=== PATIENT | female | born 1965 | race Hispanic/Latino ===

== ENCOUNTER 2020-05-15 17:26 | Emergency (ER) | payer BC ==
[~2020-05-15] VITALS: Ht 154.9 cm; Wt 76.7 kg
[2020-05-15] MEDS ORDERED: SODIUM CHLORIDE 0.9% 1000ML 1,000 ML IV STA (17:48)
[2020-05-15] MEDS ORDERED: LORAZEPAM INJ 2 MG/ML VIAL IV ONE (18:00)
[2020-05-15] MEDS ORDERED: HALOPERIDOL LACTATE 5 MG/ML VIAL IM ONE (18:00)
[2020-05-15 18:05] LABS: BASOPHILS # (AUTO) 0.1 (0.0-0.1); BASOPHILS % 0.5 % (0.0-1.0); EOSINOPHILS # (AUTO) 0.1 (0.0-0.4); EOSINOPHILS % 0.4 % (0.0-6.0); HEMATOCRIT 40.6 % (34.2-44.1); HEMOGLOBIN 13.6 g/dL (12.0-16.0); LYMPHOCYTES % 22.8 % (18.0-39.1); MEAN CORPUSCULAR HEMOGLOBIN 29.8 pg (28-32); MEAN CORPUSCULAR HGB CONC 33.5 g/dL (31-35); MONOCYTES # (AUTO) 0.7 (0.2-0.8); MONOCYTES % 5.2 % (4.4-11.3); NEUTROPHILS # (AUTO) 9.3 (2.1-6.9); NEUTROPHILS % 70.6 % (38.7-80.0); PLATELET COUNT 512 x10e3/uL (140-360); RED BLOOD COUNT 4.56 x10e6/uL (3.6-5.1); RED CELL DISTRIBUTION WIDTH 12.5 % (11.7-14.4)
--- NOTE | 2020-05-15 18:23 | Emergency Department Note ---
History of Present Illnes History of Present Illness Chief Complaint: Psychiatric History of Present Illness This is a 54 year old female Chief Complaint Comment Patient presents to the emergency department in what appears to be a panic attack. Patient reports that it started this morning when she was using her mouse for work at home and she noticed that her mouse was moving around rapidly. She then noticed that it was her hand moving. She states that the symptoms became worse around 1630. On arrival to ER she is hyperventialting and screaming for help. She is tearful and states that she has never had anything like this happen before. Patient is tachycardic and tachypneic in triage and unable to calm herself down. Historian: Patient Arrival Mode: Car Sap Bw Developer Required: No Onset (how long ago): hour(s) (1) Location: head Quality: anxiety Radiation: Reports non-radiation Severity: severe Onset quality: sudden Duration (how long): hour(s) (1) Timing of current episode: sporadic Progression: worsening Chronicity: recurrent Context: Denies recent illness Relieving factors: none Exacerbating factors: none Associated symptoms: Reports denies other symptoms Treatments prior to arrival: none Past Medical/Family History Physician Review I have reviewed the patient's past medical and family history. Any updates have been documented here. Past Medical History Recent Fever: No Clinical Suspicion of Infectio: No New/Unexplained Change in Ment: No Past Medical History: Hypertension, Diabetes, Depression, Hyperlipedemia Other Surgery: GASTRIC BAND Social History Smoking Cessation: Never Smoker Counseling Performed: No Alcohol Use: None Any Illegal Drug Use: No Other Any Pre-Existing Lines (PICC,: No Review of Systems Review of Systems Constitutional: Reports no symptoms EENTM: Reports no symptoms Cardiovascular: Reports no symptoms Respiratory: Reports no symptoms Gastrointestinal: Reports no symptoms Genitourinary: Reports no symptoms Musculoskeletal: Reports no symptoms Integumentary: Reports no symptoms Neurological: Reports no symptoms Psychological: Reports as per HPI, Reports anxiety, Reports emotional problems Endocrine: Reports no symptoms Hematological/Lymphatic: Reports no symptoms Physical Exam Related Data Allergies: Coded Allergies: No Known Allergies (Unverified , 05/28/15) Triage Vital Signs Vital Signs Date Time Temp Pulse Resp B/P (MAP) Pulse Ox O2 Delivery O2 Flow Rate FiO2 05/15/20 17:28 99.5 152 18 Room Air 05/15/20 17:57 98 Vital signs reviewed: Yes Physical Exam CONSTITUTIONAL Constitutional: Present well-developed, Present well-nourished, Present distressed HENT HENT: Present normocephalic, Present atraumatic, Present oropharynx clear/moist, Present nose normal HENT L/R: Present left ext ear normal, Present right ext ear normal EYES Eyes: Reports PERRL, Reports conjunctivae normal NECK Neck: Present ROM normal PULMONARY Pulmonary: Present effort normal, Present breath sounds normal CARDIOVASCULAR Cardiovascular: Present regular rhythm, Present heart sounds normal, Present capillary refill normal, Present normal rate GASTROINTESTINAL Abdominal: Present soft, Present nontender, Present bowel sounds normal GENITOURINARY Genitourinary: Present exam deferred SKIN Skin: Present warm, Present dry MUSCULOSKELETAL Musculoskeletal: Present ROM normal NEUROLOGICAL Neurological: Present alert, Present oriented x 3, Present no gross motor or sensory deficits PSYCHOLOGICAL Psychological: Present mood/affect normal, Present judgement normal Results Laboratory Result Diagram: 05/15/20 1256 Laboratory Laboratory Tests Test 05/15/20 17:45 White Blood Count 13.21 x10e3/uL (4.8-10.8) Red Blood Count 4.56 x10e6/uL (3.6-5.1) Hemoglobin 13.6 g/dL (12.0-16.0) Hematocrit 40.6 % (34.2-44.1) Mean Corpuscular Volume 89.0 fL (81-99) Mean Corpuscular Hemoglobin 29.8 pg (28-32) Mean Corpuscular Hemoglobin Concent 33.5 g/dL (31-35) Red Cell Distribution Width 12.5 % (11.7-14.4) Platelet Count 512 x10e3/uL (140-360) Neutrophils (%) (Auto) 70.6 % (38.7-80.0) Lymphocytes (%) (Auto) 22.8 % (18.0-39.1) Monocytes (%) (Auto) 5.2 % (4.4-11.3) Eosinophils (%) (Auto) 0.4 % (0.0-6.0) Basophils (%) (Auto) 0.5 % (0.0-1.0) Neutrophils # (Auto) 9.3 (2.1-6.9) Lymphocytes # (Auto) 3.0 (1.0-3.2) Monocytes # (Auto) 0.7 (0.2-0.8) Eosinophils # (Auto) 0.1 (0.0-0.4) Basophils # (Auto) 0.1 (0.0-0.1) Absolute Immature Granulocyte (auto 0.07 x10e3/uL (0-0.1) Assessment & Plan Medical Decision Making MDM 54-year-old female presenting for feelings of dread and anxiety. She is overwhelmed with her father's recent . Examination is significant for tachypnea and tachycardia. This is largely resolved with Ativan. She denies any pain or any cardiac concerns. This is a recurrent issue since her father has . She denies suicidal ideation. CT head and labs are largely unremarkable. Doubt emergent process at this time. I discussed results patient as well as expected disease time course and management. They will follow up with their primary care provider or return to the emergency department for new or worsening symptoms. Patient's appropriate for discharge. Reassessment Reassessment time: 18:37 Reassessment Well appearing, NAD. Improved VS Assessment & Plan Final Impression: (1) Panic attack Depart Disposition: HOME, SELF-CARE Last Vital Signs Date Time Temp Pulse Resp B/P (MAP) Pulse Ox O2 Delivery O2 Flow Rate FiO2 05/15/20 17:57 135 36 134/68 98 Room Air 05/15/20 17:28 99.5 Medications in the ED Lorazepam 1 mg ONCE ONCE IV Last administered on 05/15/20at 17:57; Admin Dose 1 MG; Start 05/15/20 at 18:00; Stop 05/15/20 at 18:01; Status DC Sodium Chloride 1,000 ml @ 0 mls/hr Q0M STAT IV Last administered on 05/15/20at 17:56; Admin Dose 1,000 MLS/HR; Start 05/15/20 at 17:48; Stop 05/15/20 at 17:50; Status DC Haloperidol Lactate 5 mg ONCE ONCE IM ; Start 05/15/20 at 18:00; Stop 05/15/20 at 18:01; Status DC DENY COOK MD May 15, 2020 18:23
[2020-05-15 18:29] LABS: ALANINE AMINOTRANSFERASE 36 IU/L (0-55); ALBUMIN 4.3 g/dL (3.5-5.0); ALBUMIN/GLOBULIN RATIO 1.1 (0.8-2.0); ALKALINE PHOSPHATASE 98 IU/L (40-150); ANION GAP 22.1 mmol/L (8-16); BLOOD UREA NITROGEN 14 mg/dL (7-26); BUN/CREATININE RATIO 18 (6-25); CARBON DIOXIDE 18 mmol/L (22-29); CHLORIDE 103 mmol/L (98-107); CREATINE KINASE 36 IU/L (29-168); CREATININE, SERUM 0.79 mg/dL (0.57-1.11); EST GLOMERULAR FILTRATION RATE > 60 ML/MIN (60-); GLUCOSE 124 mg/dL (74-118); POTASSIUM 4.1 mmol/L (3.5-5.1); SODIUM 139 mmol/L (136-145)
--- OUTSIDE RECORDS SUMMARY | 2020-05-15 18:54 | XMS REPORT | Summary of Care ---
Author Author Thai Case, [facility] Organization Unknown Address Unknown Phone Unavailable Care Team Providers Care Sales Person Name Role Phone NATALIA Perry.P., LESLIE Unavailable Unavailable NEREYDA Garcia, PITO Unavailable Unavailable NERYEDA VILLAGOMEZ ND, PITO HERNANDEZ Unavailable Unavailable FRANCES COMBINATION MACHINE TENDER, MERLYN Verdugo Unavailable Unavailable REINA COMBINATION MACHINE TENDER, KURT Unavailable Unavailable NATALIA COMBINATION MACHINE TENDER-C, LESLIE Singh Unavailable Unavailable DRU VILLAGOMEZ, NEEL Unavailable Unavailable ALMA NGUYEN UT, ANGEL LUIS Escamilla Unavailable Unavailable Unavailable Unavailable Functional Status Name Dates Details Functional status health issues are not documented Status: Name Dates Details Cognitive status health issues are not d ocumented Status: Problems Name Dates Details 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, 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 Normal routine physical examination (V70 .0, Z00.00) Status: Active Common migraine without aura (346.10, G4 3.009) Status: Active Myalgia and myositis (729.1) Status: Active Conductive hearing loss (389.00, H90.2) Status: Active Hearing loss (389.9, H91.90) Status: Active Tinnitus (388.30, H93.19) Status: Active Dizziness (780.4, R42) Status: Active Papanicolaou smear for cervical cancer s creening (V76.2, Z12.4) Status: Active Menopausal symptoms (627.2, N95.1) Status: Active Encounter for vitamin deficiency screeni ng (V77.99, Z13.21) Status: Active Screening for hypothyroidism (V77.0, Z13 .29) Status: Active Acute urinary tract infection (599.0, N3 9.0) Status: Active Encounter for gynecological examination (V72.31, Z01.419) Status: Active Colon cancer screening (V76.51, Z12.11) Status: Active Constipation (564.00, K59.00) Status: Active Controlled depression (311, F32.9) Status: Active Major depression, chronic (296.20, F32.9 ) Status: Active Headache, chronic daily (784.0, R51) Status: Active Hearing loss, sudden, left (388.2, H91.2 2) Status: Active 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, 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 Dysgeusia (781.1, R43.2) Status: Active 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, 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, 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 pylori infection (041.86, A04.8) Status: Active Breast lump on right side at 11 o'clock position (611.72, N63.11) Status: Active Essential (primary) hypertension (401.9, I10) Status: Active Other hyperlipidemia (272.4, E78.49) Status: Active Need for Tdap vaccination (V06.1, Z23) Status: Active BMI 30.0-30.9,adult (V85.30, Z68.30) Status: Active Cervical cancer screening (V76.2, Z12.4) Status: Active Well woman exam with routine gynecologic al exam (V72.31, Z01.419) Status: Active Screening for human papillomavirus (HPV) (V73.81, Z11.51) Status: Active Breast cancer screening (V76.10, Z12.39) Status: Active New onset type 2 diabetes mellitus (250. 00, E11.9) Status: Active Cholelithiases (574.20, K80.20) Status: Active Hepatic steatosis (571.8, K76.0) Status: Active Glycosuria (791.5, R81) Status: Active Cough variant asthma (493.82, J45.991) Status: Active Acute bronchitis due to other specified organisms (466.0, J20.8) Status: Active Class 1 obesity due to excess calories w ithout serious comorbidity with body mass index (BMI) of 31.0 to 31.9 in adult (278.00, E66.09) Status: Active Mild persistent reactive airway disease without complication (493.90, J45.30) Status: Active Acute pharyngitis due to other specified organisms (462, J02.8) Status: Active Medications Name Dates Details Atorvastatin Calcium 20 MG Oral Tablet TAKE 1 TABLET DAILY Quantity: 90 LESLIE FISHER N.P. * Start : 01-Jul-2016 Active traZODone HCl - 50 MG Oral Tablet TAKE 1/2 OR 1 TABLET AT BEDTIME * Quantity: 90 Refills: 1 LESLIE FISHER N.P. * Start : 01-Jul-2016 Active buPROPion HCl ER (XL) 150 MG Oral Tablet Extended Release 24 Hour TAKE 2 TABLETS BY MOUTH DAILY * Quantity: 180 Refills: 1 LESLIE FISHER N.P. * Start : 01-Jul-2016 Active Pantoprazole Sodium 40 MG Oral Tablet Delayed Release TAKE 1 TABLET BY MOUTH DAILY PRN * Quantity: 90 Refills: 1 PITO DAWN M.D. * Start : 17-Oct-2017 Active Albuterol Sulfate HFA 108 (90 Base) MCG/ACT Inhalation Aerosol Solution 2 INHALATIONS FOUR TIMES A DAY UNTIL WELL * Quantity: 1 Refills: 0 NEREYDA Garcia, PITO * Start : 29-Oct-2019 Active 6.7 GM Inhaler predniSONE 10 MG Oral Tablet TAKE 1 TABLET DAILY AFTER BREAKFAST FOR 7 DAYS * Quantity: 7 Refills: 0 NEREYDA Garcia, PITO * Start : 29-Oct-2019 Active Doxycycline Hyclate 100 MG Oral Capsule TAKE 1 CAPSULE TWICE A DAY WITH FULL GLASS OF WATER FOR 10 DAYS * Quantity: 20 Refills: 0 NEREYDA Garcia, PITO * Start : 29-Oct-2019 Active Allergies and Adverse Reactions Name Dates Details No Known Allergies (Allergy) Status: Act lolis Past Medical History Name Dates Details History of deafness (V12.49, Z86.69) Status: Resolved History of Depressive disorder (311, F32 .9) Status: Resolved History of esophageal reflux (V12.79, Z8 7.19) Status: Resolved History of insomnia (V13.89, Z87.898) Status: Resolved History of Mammogram Status: Resolved History of Menopause (V49.81) Status: Resolved History of Vitamin B12 deficiency (266.2 , E53.8) Status: Resolved History of Vitamin D insufficiency (268. 9, E55.9) Status: Resolved No pertinent past medical history (V49.8 9, Z78.9) Status: Resolved Procedures Procedure Dates Details History of Gastric Surgery Completed History of Hysterectomy Completed Immunization Name Dates Details Td on: Aug-1996 Fluzone Quadrivalent 0.5 ML Intramuscula r Suspension Lot #: [id number] on: 03-Jun-2015 Fluzone Quadrivalent 0.5 ML Intramuscula r Suspension Lot #: [id number] on: 10-Jun-2016 Fluzone Quadrivalent 0.5 ML Intramuscula r Suspension Lot #: [id number] on: 17-Oct-2017 Hepatitis A, adult Lot #: [id number] on: 17-Oct-2017 Family History Name Dates Details Family history of Breast Cancer (V16.3) Comments: Family History Status: Active Family history of Heart Disease (V17.49) Comments: Family History Status: Active Name Dates Details Family history of Hypertension (V17.49) Status: Active Family history of Diabetes Mellitus (V18 .0) Status: Active Name Dates Details Family history of Hypertension (V17.49) Status: Active Family history of Cancer Status: Active Social History Name Dates Details - Status: Name Dates Details Former smoker Vital Signs Date Test Result Details [id number]-[id number]:52 BP Systolic 136 mm[Hg] Status: Comments: Lo cation: LUE; Position: Sitting BP Diastolic 66 mm[Hg] Status: Comments: Lo cation: LUE; Position: Sitting Height 61 in Status: Weight 166 lb Status: Body Mass Index Calculated 31.37 kg/m2 Status: Body Surface Area Calculated 1.75 m2 Status: Temperature 98.8 f Status: Comments: Me thod: Temporal Heart Rate 92 /min Status: Comments: Lo cation: L Radial; Respiration Rate 16 /min Status: Comments: Qu ality: Normal Results Date Description Value Details [id number]-[id number]:12 [O] Flu Test (in Office ) Flu A N (Normal) Flu B N (Normal) Plan of Care Name Dates Details Planned Observations Planned Goals not documented Planned Encounters Appointment; NEEL GONSALES M.D. On: 31-Oct-2019 15:15 Appointment; PITO DAWN M.D. On: 19-Nov-2019 10:30 Interventions Provided Medication Changes* Albuterol Sulfate HFA 108 (90 Base) MCG/ACT Inhalation Aerosol Solution - Start * Doxycycline Hyclate 100 MG Oral Capsule - Start * Pantoprazole Sodium 40 MG Oral Tablet Delayed Release - Renew * predniSONE 10 MG Oral Tablet - Start Labs/Procedures/Imaging* [O] Flu Test (in Office ); Done: 29 Oct 2019 * Nebulizer Treatment (In Office); Done: 29 Oct 2019 Medications/Immunizations Administered* Levalbuterol HCl - 1.25 MG/3ML Inhalation Nebulization Solution * MethylPREDNISolone Acetate 80 MG/ML Injection Suspension Instructions Name Dates Details Instructions not documented Encounters Appointment; PITO DAWN M.D. Encounter Diagnosis: Problem not documented On: 06-Dec-2017 8:00 Appointment; PITO DAWN M.D. Encounter Diagnosis: Problem not documented On: 06-Dec-2017 8:15 Appointment; ASHLEY TAYLOR M.D. Encounter Diagnosis: Problem not documented On: 20-Dec-2017 14:00 Appointment; MERLYN DANIELS NP Encounter Diagnosis: Problem not documented On: 29-Dec-2017 15:30 Appointment; NEEL GONSALES M.D. Encounter Diagnosis: Problem not documented On: 22-Feb-2018 10:45 Appointment; PJ BERNABE RD Encounter Diagnosis: Problem not documented On: 06-Mar-2018 9:00 Appointment; PITO DAWN M.D. Encounter Diagnosis: Problem not documented On: 06-Jul-2018 8:30 Appointment; PITO DAWN M.D. Encounter Diagnosis: Problem not documented On: 11-Aug-2018 11:00 Appointment; MERLYN DANIELS NP Encounter Diagnosis: Problem not documented On: 14-Dec-2018 13:45 Appointment; KURT HUANG NP Encounter Diagnosis: Problem not documented On: 17-Jan-2019 8:00 Appointment; LESLIE FISHER NP Encounter Diagnosis: Problem not documented On: 04-Apr-2019 13:30 Appointment; PITO DAWN M.D. Encounter Diagnosis: Problem not documented On: 05-Jul-2019 14:45 Appointment; NEEL GONSALES M.D. Encounter Diagnosis: Problem not documented On: 15-Aug-2019 9:45 Appointment; PITO DAWN M.D. Encounter Diagnosis: Problem not documented On: 23-Aug-2019 15:45 Appointment; NEEL GONSALES M.D. Encounter Diagnosis: Problem not documented On: 19-Sep-2019 15:30 Appointment; PITO DAWN M.D. Encounter Diagnosis: Problem not documented On: 29-Oct-2019 8:30
--- OUTSIDE RECORDS SUMMARY | 2020-05-15 18:54 | XMS REPORT | Summary of Care ---
Author Author [facility] Address [address] [place] [address] Phone Unavailable Care Team Providers Care Copy Chaser Name Role Phone NATALIA Ramirez, LESLIE Unavailable Unavailable NEREYDA Garcia, PITO Unavailable Stephan DAWN MD ID, PITO HERNANDEZ Unavailable Unavailable FRANCES GENERAL MAINTENANCE TECHNICIAN, MERLYN Verdugo Unavailable Unavailable REINA GENERAL MAINTENANCE TECHNICIAN, KURT Unavailable Unavailable NATALIA GENERAL MAINTENANCE TECHNICIAN-C, LESLIE Singh Unavailable Unavailable DRU VILLAGOMEZ, NEEL Unavailable Unavailable ALMA NGUYEN ID, ANGEL LUIS Escamilla Unavailable Unavailable Unavailable Unavailable [...] UNTIL WELL * Quantity: 1 Refills: 0 SANTHOSH DAWN M.D.NDA * Start : 29-Oct-2019 Active 6.7 GM Inhaler predniSONE 10 MG Oral Tablet TAKE 1 TABLET DAILY AFTER BREAKFAST FOR 7 DAYS * Quantity: 7 Refills: 0 NEREYDA Garcia, PITO * Start : 29-Oct-2019 Active Doxycycline Hyclate 100 MG Oral Capsule TAKE 1 CAPSULE TWICE A DAY WITH FULL GLASS OF WATER FOR 10 DAYS * Quantity: 20 Refills: 0 SANTHOSH DAWN M.D.NDA * Start : 29-Oct-2019 Active Allergies and [...] 0.5 ML Intramuscula r Suspension Lot #: [id number] on: 03-Jun-2015 Fluzone Quadrivalent 0.5 ML Intramuscula r Suspension Lot #: [id number] on: 10-Jun-2016 Fluzone Quadrivalent 0.5 ML Intramuscula r Suspension Lot #: [id number] on: 17-Oct-2017 Hepatitis A, adult Lot #: [...] smoker Vital Signs Date Test Result Details [id number]:52 BP Systolic 136 mm[Hg] Status: Comments: Lo [...] ality: Normal Results Date Description Value Details [id number]:12 [O] Flu Test (in Office ) Flu A N (Normal) Flu B N (Normal) Plan of Care Name Dates Details Planned Observations Planned Goals not documented Planned Encounters Appointment; PITO DAWN M.D. On: 19-Nov-2019 10:30 Instructions Name Dates Details Instructions not documented [...] Diagnosis: Problem not documented On: 29-Oct-2019 8:30 Appointment; NEEL GONSALES M.D. Encounter Diagnosis: Problem not documented On: 31-Oct-2019 15:15
--- OUTSIDE RECORDS SUMMARY | 2020-05-15 18:54 | XMS REPORT | Summary of Care ---
Author Author Srini Case, [facility] Organization Unknown Address Unknown Phone Unavailable Care Team Providers Care Photographic Editor Name Role Phone NATALIA N.P., LESLIE Unavailable Unavailable NEREYDA Garcia, PITO Unavailable Unavailable NEREYDA VILLAGOMEZ UT, PITO HERNANDEZ Unavailable Unavailable FRANCES REINFORCED CONCRETE INSPECTOR, MERLYN Verdugo Unavailable Unavailable REINA REINFORCED CONCRETE INSPECTOR, KURT Unavailable Unavailable NATALIA REINFORCED CONCRETE INSPECTOR-C, LESLIE Singh Unavailable Unavailable DRU VILLAGOMEZ, NEEL [...] other specified organisms (466.0, J20.8) Status: Active Acute pharyngitis due to other specified organisms (462, J02.8) Status: Active Mild intermittent reactive airway diseas e without complication (493.90, J45.20) Status: Active Class 1 obesity due to excess calories w ithout serious comorbidity with body mass index (BMI) of 31.0 to 31.9 in adult (278.00, E66.09) Status: Active Medications Name Dates Details Atorvastatin Calcium 20 MG Oral Tablet TAKE 1 TABLET DAILY Quantity: 90 LESLIE FISHER N.P. * Start : 01-Jul-2016 Active traZODone HCl - 50 MG Oral Tablet TAKE 1/2 OR 1 TABLET AT BEDTIME * Quantity: 90 Refills: 1 LESLIE IFSHER N.P. * Start : 01-Jul-2016 Active buPROPion [...] 0.5 ML Intramuscula r Suspension Lot #: [id number] on: 03-Jun-2015 Fluzone Quadrivalent 0.5 ML Intramuscula r Suspension Lot #: [id number] on: 10-Jun-2016 Fluzone Quadrivalent 0.5 ML Intramuscula r Suspension Lot #: [id number] on: 17-Oct-2017 Hepatitis A, adult Lot #: [...] smoker Vital Signs Date Test Result Details [id number]:52 BP Systolic 136 mm[Hg] Status: Comments: Lo [...] ality: Normal Results Date Description Value Details 60-[id number]:12 [O] Flu Test (in Office ) Flu [...] * MethylPREDNISolone Acetate 80 MG/ML Injection Suspension Plan* Rapid flu test: Negative * Acute bronchitis, Acute pharyngitis, Mild RAD without complication: * - In office: Nebulizer treatment with Levalbuterol HCl 1.25 mg and IM injection of Methylprednisolone 80 mg * - Medications: * - START Albuterol Sulfate 108 mcg/act, 2 inhalations, four times daily until well * - START Doxycycline 500 mg, BID x 10 days, may discontinue medication after 7 days if feeling well * - START Prednisone 10 mg, 1 tab daily after breakfast x 7 days * - Recommended increase intake of liquids * Return to clinic if symptoms worsen or fail to improve. Instructions Name Dates Details Instructions not documented [...] not documented On: 11-Aug-2018 11:00 Appointment; MERLYN DANIELS, GIOVANNI Encounter Diagnosis: Problem not documented On: 14-Dec-2018 13:45 Appointment; KURT HUANG, GIOVANNI Encounter Diagnosis: Problem not documented On: 17-Jan-2019 [...]
--- OUTSIDE RECORDS SUMMARY | 2020-05-15 18:54 | XMS REPORT | Continuity of Care Document ---
Author Author [facility] t Organization [facility] Address [address] [place] [address] Phone Unavailable Care Team Providers Care Receiver Setter Name Role Phone DIONY TAYLOR, INTERACTIVE MARKETING STRATEGIST Attphys Unavailable PITO DAWN M.D. Attphys Unavailable NEEL GONSALES M.D. Attphys Unavailable LESLIE FISHER APRN Attphys Unavailable KURT HUANG INTERACTIVE MARKETING STRATEGIST Attphys Unavailable MERLYN DANIELS APRN Attphys Unavailable PJ BERNABE RD Attphys Unavailable ASHLEY TAYLOR M.D. Attphys Unavailable BERENICE JONES NP Attphys Unavailable ANGEL LUIS MARQUEZ Attphys Unavailable JASPREET FITCH M.D. Attphys Unavailable AUDIOLOGY, LAB Attphys Unavailable GENERAL, AUDIOLOGY Attphys Unavailable Payers Payer Name Policy Type Policy Number Effective Date Expiration Date S ource Problems Condition Name Condition Details Condition Category Status Onset Date Resolution Date Last Treatment Date Treating Clinician Comments Source History of Mammogram History of Mammogram Problem Resolved [facility] History of Menopause History of Menopause Problem Resolved [facility] Myalgia and myositis Myalgia and myositis Problem Active [facility] History of deafness History of deafness Problem Resolved [facility] Major depression, chronic Major depression, chronic Problem Active [facility] History of esophageal reflux History of esophageal reflux Problem Re solved [facility] History of insomnia History of insomnia Problem Resolved [facility] History of Vitamin B12 deficiency History of Vitamin B12 deficie ncy Problem Resolved [facility] History of Vitamin D insufficiency History of Vitamin D insuffic iency Problem Resolved [facility] Hyperacusis Hyperacusis Problem Active [facility] Normal routine physical examination Normal routine physical exam ination Problem Active [facility] Common migraine without aura Common migraine without aura Problem Active [facility] Conductive hearing loss Conductive hearing loss Problem Active [facility] Hearing loss Hearing loss Problem Active [facility] Tinnitus Tinnitus [facility] Dizziness Dizziness Problem [facility] Cervical cancer screening Cervical cancer screening Problem Active [facility] Menopausal symptoms Menopausal symptoms Problem Active [facility] Encounter for vitamin deficiency screening Encounter f or vitamin deficiency screening Problem Active [facility] Screening for hypothyroidism Screening for hypothyroidism Problem Active [facility] Acute urinary tract infection Acute urinary tract infection Problem Active [facility] Well woman exam with routine gynecological exam Well w juan exam with routine gynecological exam Problem Active [facility] Colon cancer screening Colon cancer screening Problem Active [facility] Constipation Constipation Problem Active [facility] Headache, chronic daily Headache, chronic daily Problem Active [facility] Hearing loss, sudden, left Hearing loss, sudden, left Problem Active [facility] Otosclerosis Otosclerosis Problem Active [facility] Dysgeusia Dysgeusia Problem Active [facility] 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 Problem Active [facility] 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 Problem Active [facility] Prediabetes Prediabetes Problem Active [facility] Chronic insomnia Chronic insomnia Problem Active [facility] Abnormal CBC Abnormal CBC Problem Active [facility] Mood disorder Mood disorder Problem Active [facility] Insomnia Insomnia Problem Active [facility] Need for Tdap vaccination Need for Tdap vaccination Problem Active [facility] On statin therapy On statin therapy Problem Active [facility] GERD (gastroesophageal reflux disease) GERD (gastroesophagea l reflux disease) Problem Active [facility] Dysphagia Dysphagia Problem Active [facility] H. pylori infection H. pylori infection Problem Active [facility] Breast lump on right side at 11 o'clock position Breas t lump on right side at 11 o'clock position Problem [facility] Essential (primary) hypertension Essential (primary) hypertensio n Problem Active [facility] Screening for human papillomavirus (HPV) Screening for human papillomavirus (HPV) Problem Active [facility] Breast cancer screening Breast cancer screening Problem Active [facility] Cholelithiases Cholelithiases Problem Active [facility] Hepatic steatosis Hepatic steatosis Problem Active [facility] Glycosuria Glycosuria Problem [facility] Cough variant asthma Cough variant asthma Problem Active [facility] Acute bronchitis due to other specified organisms Acut e bronchitis due to other specified organisms Problem Active [facility] Mild persistent reactive airway disease without compli cation Mild persistent reactive airway disease without complication Problem Active [facility] Acute pharyngitis due to other specified organisms Acu te pharyngitis due to other specified organisms Problem Active [facility] New onset type 2 diabetes mellitus New onset type 2 diabetes mor litus Problem Active [facility] Subjective memory complaints Subjective memory complaints Problem Active [facility] Encounter for monitoring statin therapy Encounter for monito ring statin therapy Problem Active [facility] Standardized adult depression screening tool completed Standardized adult depression screening tool completed Problem Active [facility] Situational stress Situational stress Problem Active [facility] Ineffective coping Ineffective coping Problem Active [facility] Body mass index (BMI) of 29.0-29.9 in adult Body mass index (BMI) of 29.0-29.9 in adult Problem Active [facility] Abnormal mini-mental status exam Abnormal mini-mental status exa m Problem Active [facility] Overweight with body mass index (BMI) of 29 to 29.9 in adult Overweight with body mass index (BMI) of 29 to 29.9 in adult Problem Active [facility] Mixed hyperlipidemia Mixed hyperlipidemia Problem Active [facility] At low risk for fall At low risk for fall Problem Active [facility] Status post gastric banding surgery Status post gastric banding surgery Problem Active [facility] COVID-19 virus infection COVID-19 virus infection Problem Active [facility] Allergies, Adverse Reactions, Alerts Allergy Name Allergy Type Status Severity Reaction(s) Onset Date Inacti ve Date Treating Clinician Comments Source No Known Allergies DA Active U 2017-01-25 00:00:00 [facility] Family History Family Member Diagnosis Comments Start Date Stop Date Source Unknown Family Member Family history of Breast Cancer Family History [facility] Unknown Family Member Family history of Heart Disease Family History [facility] Mother Family history of Hypertension [facility] Mother Family history of Diabetes Mellitus [facility] Father Family history of Hypertension [facility] Father Family history of Cancer [facility] Social History Smoking Status Start Date Stop Date Source Ex-smoker (finding) [place] [facility] Medications Ordered Medication Name Filled Medication Name Start Date Stop Da te Current Medication? Ordering Clinician Indication Dosage Frequency Signature (SIG) Comments Components Source Promethazine-DM 6.25-15 MG/5ML Oral Syrup Promethazine -DM 6.25-15 MG/5ML Oral Syrup 2020-04-29 00:00:00 Yes LESLIE FISHER APRN TAKE 5 ML EVERY 4 TO 6 HOURS NEEDED FOR COUGH. [facility] Xopenex HFA 45 MCG/ACT Inhalation Aerosol Xopenex HFA 45 MCG/ACT Inhalation Aerosol 2020-04-29 00:00:00 Yes LESLIE FISHER APRN 2 Q6H INHALE 2 PUFFS Every 6 hours PRN Shortness of breath Un [facility] clonazePAM 0.25 MG Oral Tablet Disintegrating clonazeP AM 0.25 MG Oral Tablet Disintegrating 2020-01-10 00:00:00 Yes DIONY TAYLOR APRN PLACE 1 TABLET ON TONGUE AND ALLOW TO DISSOLVE NEEDED FOR PANIC ATTACKS AND TO HELP SLEEP. [facility] Januvia 100 MG Oral Tablet Januvia 100 MG Oral Tablet 2019-11-19 00:0 0:00 Yes PITO DAWN M.D. 1 QD TAKE 1 TABLET DAILY. [facility] Albuterol Sulfate HFA 108 (90 Base) MCG/ACT Inhalation Aerosol Solution Albuterol Sulfate HFA 108 (90 Base) MCG/ACT Inhalation Aerosol Solution 2019-10-29 00:00:00 Yes PITO DAWN M.D. 2 INHALATIONS FOUR TIMES A DAY UNTIL WELL [facility] Pantoprazole Sodium 40 MG Oral Tablet Delayed Release Pantoprazole Sodium 40 MG Oral Tablet Delayed Release 2017-10-17 00:00:00 Yes PITO Galindo TAKE 1 TABLET BY MOUTH DAILY PRN [facility] Atorvastatin Calcium 20 MG Oral Tablet Atorvastatin Calcium 20 MG Oral Tablet 2016-07-01 00:00:00 Yes LESLIE FISHER APRN 1 QD TAKE 1 TABLET DAILY [facility] traZODone HCl - 50 MG Oral Tablet traZODone HCl - 50 MG Oral Tablet 2016-07-01 00:00:00 Yes LESLIE FISHER INTERACTIVE MARKETING STRATEGIST TAKE 1/2 OR 1 T ABLET AT BEDTIME [facility] buPROPion HCl ER (XL) 150 MG Oral Tablet Extended Rele ase 24 Hour buPROPion HCl ER (XL) 150 MG Oral Tablet Extended Release 24 Hour 2016-07-01 00:00:00 Yes DIONY TAYLOR INTERACTIVE MARKETING STRATEGIST TAKE 2 TABLETS BY MOUTH DAILY [facility] Immunizations Ordered Immunization Name Filled Immunization Name Date Status Comments Source Tdap (Boostrix) 2019-11-19 11:30:00 Completed [facility] Fluzone Quadrivalent 0.5 ML Intramuscular Suspension 2017-10-17 09:46:00 Completed [facility] Hepatitis A, adult 2017-10-17 09:46:00 Completed [facility] Fluzone Quadrivalent 0.5 ML Intramuscular Suspension 2016-06-10 15:43:00 Completed [facility] Fluzone Quadrivalent 0.5 ML Intramuscular Suspension 2015-06-03 11:47:00 Completed [facility] Td Unknown Completed [facility] Vital Signs Vital Name Observation Time Observation Value Comments Source Systolic blood pressure 2020-01-10 08:35:00 135 mm[Hg] Loca tion: TAMY; Position: Sitting [facility] Diastolic blood pressure 2020-01-10 08:35:00 82 mm[Hg] Loc ation: EFFIEE; Position: Sitting [facility] Body height 2020-01-10 08:35:00 61 [in_us] [facility] Weight 2020-01-10 08:35:00 155.375 [lb_av] [facility] Body mass index (BMI) [Ratio] 2020-01-10 08:35:00 29.36 kg/m2 [facility] Body temperature 2020-01-10 08:35:00 97.7 [degF] Method: Temporal [facility] Heart Rate 2020-01-10 08:35:00 103 /min [facility] Respiratory rate 2020-01-10 08:35:00 16 /min [facility] BP Systolic 2019-11-19 11:24:00 128 mm[Hg] Location: TAMY; Positi on: Sitting [facility] BP Diastolic 2019-11-19 11:24:00 82 mm[Hg] Location: LUE; Positi on: Sitting [facility] BP Systolic 2019-11-19 10:32:00 120 mm[Hg] Location: LUE; Positi on: Sitting [facility] BP Diastolic 2019-11-19 10:32:00 76 mm[Hg] Location: LUE; Positi on: Sitting [facility] BP Systolic 2019-11-19 10:27:00 143 mm[Hg] Location: LUE; Positi on: Sitting [facility] BP Diastolic 2019-11-19 10:27:00 77 mm[Hg] Location: LUE; Positi on: Sitting [facility] Height 2019-11-19 10:27:00 61 [in_us] [facility] Weight 2019-11-19 10:27:00 158.1 [lb_av] [facility] Body Mass Index Calculated 2019-11-19 10:27:00 29.87 kg/m2 [facility] Temperature 2019-11-19 10:27:00 97.8 [degF] Method: Temporal [facility] Heart Rate 2019-11-19 10:27:00 91 /min Location: L Radial; [facility] Respiration Rate 2019-11-19 10:27:00 16 /min Quality: Normal [facility] BP Systolic 2019-10-29 08:52:00 136 mm[Hg] Location: LUE; Positi on: Sitting [facility] BP Diastolic 2019-10-29 08:52:00 66 mm[Hg] Location: LUE; Positi on: Sitting [facility] Height 2019-10-29 08:52:00 61 [in_us] [facility] Weight 2019-10-29 08:52:00 166 [lb_av] [facility] Body Mass Index Calculated 2019-10-29 08:52:00 31.37 kg/m2 [facility] Temperature 2019-10-29 08:52:00 98.8 [degF] Method: Temporal [facility] Heart Rate 2019-10-29 08:52:00 92 /min Location: L Radial; [facility] Respiration Rate 2019-10-29 08:52:00 16 /min Quality: Normal [facility] BP Systolic 2019-09-19 15:48:00 141 mm[Hg] Location: LUE; Positi on: Sitting [facility] BP Diastolic 2019-09-19 15:48:00 81 mm[Hg] Location: LUE; Positi on: Sitting [facility] Height 2019-09-19 15:48:00 61 [in_us] [facility] Weight 2019-09-19 15:48:00 165.5 [lb_av] [facility] Body Mass Index Calculated 2019-09-19 15:48:00 31.27 kg/m2 [facility] Temperature 2019-09-19 15:48:00 97.6 [degF] Method: Oral [facility] Heart Rate 2019-09-19 15:48:00 95 /min [facility] BP Systolic 2019-08-15 10:32:00 127 mm[Hg] Location: LUE; Positi on: Sitting [facility] BP Diastolic 2019-08-15 10:32:00 87 mm[Hg] Location: EFFIEE; Positi on: Sitting [facility] Height 2019-08-15 10:32:00 61 [in_us] [facility] Weight 2019-08-15 10:32:00 164 [lb_av] [facility] Body Mass Index Calculated 2019-08-15 10:32:00 30.99 kg/m2 [facility] Temperature 2019-08-15 10:32:00 98.4 [degF] Method: Oral [facility] Heart Rate 2019-08-15 10:32:00 87 /min [facility] BP Systolic 2019-04-04 13:49:00 125 mm[Hg] Location: LLE; Positi on: Sitting [facility] BP Diastolic 2019-04-04 13:49:00 77 mm[Hg] Location: LLE; Positi on: Sitting [facility] Height 2019-04-04 13:49:00 61 [in_us] [facility] Weight 2019-04-04 13:49:00 162 [lb_av] [facility] Body Mass Index Calculated 2019-04-04 13:49:00 30.61 kg/m2 [facility] Temperature 2019-04-04 13:49:00 98.1 [degF] Method: Temporal [facility] Respiration Rate 2019-04-04 13:49:00 16 /min [facility] Heart Rate 2019-04-04 13:49:00 91 /min [facility] BP Systolic 2019-01-17 08:15:00 131 mm[Hg] Location: LUE; Positi on: Sitting [facility] BP Diastolic 2019-01-17 08:15:00 75 mm[Hg] Location: LUE; Positi on: Sitting [facility] Height 2019-01-17 08:15:00 61 [in_us] [facility] Weight 2019-01-17 08:15:00 163.25 [lb_av] [facility] Body Mass Index Calculated 2019-01-17 08:15:00 30.85 kg/m2 [facility] Temperature 2019-01-17 08:15:00 97.8 [degF] Method: Temporal [facility] Heart Rate 2019-01-17 08:15:00 72 /min [facility] Respiration Rate 2019-01-17 08:15:00 16 /min [facility] BP Systolic 2017-12-20 13:57:00 126 mm[Hg] Location: LUE; Positi on: Sitting [facility] BP Diastolic 2017-12-20 13:57:00 76 mm[Hg] Location: LUE; Positi on: Sitting [facility] Height 2017-12-20 13:57:00 61 [in_us] [facility] Weight 2017-12-20 13:57:00 142 [lb_av] [facility] Body Mass Index Calculated 2017-12-20 13:57:00 26.83 kg/m2 [facility] Temperature 2017-12-20 13:57:00 98.5 [degF] Method: Oral [facility] Heart Rate 2017-12-20 13:57:00 80 /min Location: L Radial; Q uality: Normal [facility] BP Systolic 2017-12-06 08:19:00 124 mm[Hg] Location: LUE; Positi on: Sitting [facility] BP Diastolic 2017-12-06 08:19:00 85 mm[Hg] Location: LUE; Positi on: Sitting [facility] Height 2017-12-06 08:19:00 61 [in_us] [facility] Weight 2017-12-06 08:19:00 142.375 [lb_av] [facility] Body Mass Index Calculated 2017-12-06 08:19:00 26.9 kg/m2 [facility] Temperature 2017-12-06 08:19:00 97.4 [degF] Method: Temporal [facility] Heart Rate 2017-12-06 08:19:00 78 /min [facility] Respiration Rate 2017-12-06 08:19:00 16 /min [facility] Procedures Procedure Date / Time Performed Performing Clinician Sourc e [QLH] METHYLMALONIC ACID 2019-11-19 00:00:00 [facility] [QLH] VITAMIN B12 2019-11-19 00:00:00 [facility] [QLH] TSH, 3RD GENERATION W/REFLEX TO FT4 2019-11-19 00:00:00 [facility] [QH] LIPID PANEL WITH REFLEX TO DIRECT LDL 2019-11-19 00:00:00 [facility] [QLH] HEMOGLOBIN A1c 2019-11-19 00:00:00 [facility] [QLH] CMP W/EGFR 2019-11-19 00:00:00 [facility] [QL] METHYLMALONIC ACID 2019-11-19 00:00:00 [facility] [QL] VITAMIN B12 2019-11-19 00:00:00 [facility] [QL] TSH, 3RD GENERATION W/REFLEX TO FT4 2019-11-19 00:00:00 [facility] [Q] LIPID PANEL WITH REFLEX TO DIRECT LDL 2019-11-19 00:00:00 [facility] [QL] HEMOGLOBIN A1c 2019-11-19 00:00:00 [facility] [QL] CMP W/EGFR 2019-11-19 00:00:00 [facility] [QLH] GLUCOSE TOLERANCE TEST, 3 SPECIMENS, (75G) 2019-06-27 00:0 0:00 [facility] [QLH] HEMOGLOBIN A1c 2019-06-27 00:00:00 [facility] [Q] HEPATITIS PANEL, ACUTE W/REFLEX 2019-06-27 00:00:00 [facility] Liver [id number] 2019-06-27 00:00:00 [facility] [[facility]] LIPID PANEL 2019-04-04 00:00:00 [facility] [[facility]] TSH, 3RD GENERATION W/REFLEX TO FT4 2019-04-04 00:00:00 [facility] [[facility]] CMP W/EGFR 2019-04-04 00:00:00 [facility] [[facility]] CBC (INCLUDES DIFF/PLT) 2019-04-04 00:00:00 [facility] [[facility]] URINALYSIS, COMPLETE 2019-04-04 00:00:00 [facility] MA Digital Mammo DX Jay [id number] 2019-01-17 00:00:00 [facility] [place] [id number] 2019-01-17 00:00:00 [facility] of Hysterectomy [facility] Encounters Start Date/Time End Date/Time En[facility] Encounter ID Source 2020-01-10 08:30:00 2020-01-10 08:30:00 Appointment; DIONY TAYLOR APRN DUGAS, NANCY, APRN [facility] [place] 1 [id number] [facility] 2019-11-19 10:30:00 2019-11-19 10:30:00 Appointment; CY DAWN M.D. GOODINE, GLENDA, M.D. [facility] [id number] [facility] 2019-10-31 15:15:00 2019-10-31 15:15:00 Appointment; NEEL GONSALES M.D. WILSON, ERIK, M.D. [facility] [id number] [facility] 2019-10-29 08:30:00 2019-10-29 08:30:00 Appointment; CY DAWN M.D. GOODINE, GLENDA, M.D. [facility] [id number] [facility] 2019-09-19 15:30:00 2019-09-19 15:30:00 Appointment; NEEL GONSALES M.D. WILSON, ERIK, M.D. [facility] [id number] [facility] 2019-08-23 15:45:00 2019-08-23 15:45:00 Appointment; CY DAWN M.D. GOODINE, GLENDA, M.D. [facility] [id number] [facility] 2019-08-15 09:45:00 2019-08-15 09:45:00 Appointment; NEEL GONSALES M.D. WILSON, ERIK, M.D. [facility] [id number] [facility] 2019-08-13 14:15:00 2019-08-13 14:15:00 Appointment; CY DAWN M.D. GOODINE, GLENDA, M.D. [facility] [id number] [facility] 2019-07-05 14:45:00 2019-07-05 14:45:00 Appointment; CY DAWN M.D. GOODINE, GLENDA, M.D. [facility] [id number] [facility] 2019-04-04 13:30:00 2019-04-04 13:30:00 Appointment; AARON FISHER APRN HOANG, CHRISTINA, APRN [facility], [address] [id number] [facility] 2019-01-17 08:00:00 2019-01-17 08:00:00 Appointment; KURT HUANG A PRN SAXE, KAILA, APRN [facility] [id number] [facility] 2018-12-14 13:45:00 2018-12-14 13:45:00 Appointment; MERLYN DANIELS APRN KLEIN, CONNIE, APRN [facility] [id number] [facility] 2018-08-11 11:00:00 2018-08-11 11:00:00 Appointment; CY DAWN M.D. GOODINE, GLENDA, M.D. [facility] [id number] [facility] 2018-07-06 08:30:00 2018-07-06 08:30:00 Appointment; CY DAWN M.D. GOODINE, GLENDA, M.D. [facility] [id number] [facility] 2018-07-06 08:30:00 2018-07-06 08:30:00 Appointment; CY DAWN M.D. GOODINE, GLENDA, M.D. [facility] UTP [id number] [facility] 2018-03-06 09:00:00 2018-03-06 09:00:00 Appointment; PJ BERNABE, PJ DE LA TORRE, GISSELLE [facility] UTP [id number] [facility] 2018-02-22 10:45:00 2018-02-22 10:45:00 Appointment; NEEL GONSALES M.D. WILSON, ERIK, M.D. [facility] [facility] [id number] [facility] 2017-12-29 15:30:00 2017-12-29 15:30:00 Appointment; MERLYN DANIELS APRN KLEIN, CONNIE, APRN [facility] [id number] [facility] 2017-12-20 14:00:00 2017-12-20 14:00:00 Appointment; ASHLEY TAYLOR M.D. CATALANO, MARC, M.D. [facility] [id number] [facility] 2017-12-06 08:15:00 2017-12-06 08:15:00 Appointment; CY DAWN M.D. GOODINE, GLENDA, M.D. [facility] [id number] [facility] 2017-12-06 08:00:00 2017-12-06 08:00:00 Appointment; CY DAWN M.D. GOODINE, GLENDA, M.D. [facility] [id number] [facility] 2017-10-17 08:30:00 2017-10-17 08:30:00 Appointment; CY DAWN M.D. GOODINE, GLENDA, M.D. [facility] [id number] [facility] 2017-04-18 15:00:00 2017-04-18 15:00:00 Appointment; BERENICE JONES N P BECK, SHERI, NP [facility] [id number] [facility] 2017-03-29 11:30:00 2017-03-29 11:30:00 Appointment; ANGEL LUIS MARQUEZ TAYLOR [facility] [id number] [facility] 2017-03-25 15:00:00 2017-03-25 15:00:00 Appointment; ANGEL LUIS MARQUEZ TAYLOR [facility] [id number] [facility] 2017-03-02 15:00:00 2017-03-02 15:00:00 Appointment; ANGEL LUIS MARQUEZ TAYLOR [facility] [id number] [facility] 2017-02-21 11:30:00 2017-02-21 11:30:00 Appointment; ANGEL LUIS MARQUEZ TAYLOR [facility] [id number] [facility] 2017-01-26 14:30:00 2017-01-26 14:30:00 Appointment; ANGEL LUIS MARQUEZ TAYLOR [facility] [id number] [facility] 2017-01-26 14:15:00 2017-01-26 14:15:00 Appointment; JASPREET FITCH M.D. ALAVA, IBRAHIM, M.D. [facility] [id number] [facility] 2016-12-22 08:30:00 2016-12-22 08:30:00 Appointment; JASPREET FITCH M.D. ALAVA, IBRAHIM, M.D. [facility] [id number] [facility] 2016-09-16 10:00:00 2016-09-16 10:00:00 Appointment; AUDIOLOGY, LAB AUDIOLOGY, LAB [facility] [id number] [facility] 2016-09-02 13:00:00 2016-09-02 13:00:00 Appointment; GENERAL, AUDIO LOGY GENERAL, AUDIOLOGY [facility] [id number] [facility] 2016-09-02 13:00:00 2016-09-02 13:00:00 Appointment; JASPREET FITCH M.D. ALAVA, IBRAHIM, M.D. [facility] [id number] [facility] 2016-07-01 15:30:00 2016-07-01 15:30:00 Appointment; CY DAWN M.D. GOODINE, GLENDA, M.D. [facility] [id number] [facility] 2016-06-24 16:00:00 2016-06-24 16:00:00 Appointment; ASHLEY TAYLOR M.D. CATALANO, MARC, M.D. [facility] [id number] [facility] 2016-06-10 10:30:00 2016-06-10 10:30:00 Appointment; CY DAWN M.D. GOODINE, GLENDA, M.D. [facility] [id number] [facility] Results Test Description Test Time Test Comments Results Result Comments Source - CTA HEAD 2020-04-22 06:35:00 Name: TAMIKA RANDHAWA [facility] : 1965 Age/S: 54 / F [address] [facility] Unit #: [id number] Loc: [place], [place] [address] Phys: Kike oFwler MD Acct: [id number] Dis Date: Status: REG ER PHONE #: [phone] Exam Date: 04/22/2020605 FAX #: [phone] Reason: cva EXAMS: CPT CODE: [id number] CTA HEAD 61994 EXAM: - CTA NECK, - CTA HEAD LOCATION: C3 HISTORY: cva TECHNIQUE: CTA head: Axial CT images were obtained from the skull base to the vertex after intravenous contrast utilizing CTA protocol. Coronal and sagittal maximum intensity projection images are provided. CTA neck: Axial CT images were obtained from the aortic arch to the skull base after intravenous contrast utilizing CTA protocol. Coronal and sagittal maximum intensity projection images are provided. This exam was performed according to our departmental dose-optimization program, which includes automated exposure control, adjustment of the mA and/or kV according to patient size and/or use of iterative reconstruction technique COMPARISON: None available time of interpretation. FINDINGS: For the purposes of this dictation, hemodynamically significant stenosis is characterized as greater than 50%. CTA head: The petrous, cavernous, and right clinoid internal carotid arteries do not demonstrate hemodynamically significant stenoses. Focal high-grade stenosis in the left clinoid internal carotid artery. The anterior and middle cerebral arteries do not demonstrate hemodynamically significant stenoses. [place] of both vertebral arteries into the basilar. Basilar artery and posterior cerebral arteries are do not demonstrate hemodynamically significant stenoses. The dural venous sinuses are patent. CTA neck: The origins of the great vessels from the aortic arch do not demonstrate hemodynamically significant stenoses. PAGE 1 Signed Report (CONTINUED) Name: TAMIKA ALEXANDER [facility] : 1965 Age/S: 54 / F [address] [place] [address] Unit #: [id number] Loc: [place] [address] Phys: Kike Fowler MD Acct: [id number] Dis Date: Status: REG ER PHONE #: [phone] Exam Date: 04/22/2020605 FAX #: [phone] Reason: cva EXAMS: CPT CODE: [id number] CTA HEAD 65049 <Continued> The bilateral common carotid arteries and bulbs are without hemodynamically significant stenosis. The internal carotid arteries do not demonstrate hemodynamically significant stenosis. Left vertebral artery is dominant. Right vertebral artery terminates in the PICA. 1.3 cm left thyroid lobe nodule. IMPRESSION: No intracranial large vessel occlusion. Focal high-grade stenosis in the left clinoid internal carotid artery, greater than 70%. 1.3 cm left thyroid lobe nodule. Recommend nonemergent thyroid ultrasound for further evaluation. at 0635 Reported and signed by: ULISSES HERRERA M.D. CC: Kike Fowler MD Technologist:Gio Hong, RT(R) CT CTDI: 20.72 DLP: 10.36 Trnscb Date/Time: 04/22/2020 (06) [email or web address] Orig Print D/T: S: 04/22/2020 (0638) PAGE 2 Signed Report - CTA NECK 2020-04-22 06:35:00 Name: TAMIKA RANDHAWA [facility] : 1965 Age/S: 54 / F [address] [place] [address] Road Unit #: [id number] Loc: [place] [address] Phys: Kike Fowler MD Acct: [id number] Dis Date: Status: REG ER PHONE #: [phone] Exam Date: 04/22/2020605 FAX #: [phone] Reason: cva EXAMS: CPT CODE: [id number] CTA NECK 30484 EXAM: - CTA NECK, - CTA HEAD LOCATION: C3 HISTORY: cva TECHNIQUE: CTA head: Axial CT images were obtained from the skull base to the vertex after intravenous contrast utilizing CTA protocol. Coronal and sagittal maximum intensity projection images are provided. CTA neck: Axial CT images were obtained from the aortic arch to the skull base after intravenous contrast utilizing CTA protocol. Coronal and sagittal maximum intensity projection images are provided. This exam was performed according to our departmental dose-optimization program, which includes automated exposure control, adjustment of the mA and/or kV according to patient size and/or use of iterative reconstruction technique COMPARISON: None available time of interpretation. FINDINGS: For the purposes of this dictation, hemodynamically significant stenosis is characterized as greater than 50%. CTA head: The petrous, cavernous, and right clinoid internal carotid arteries do not demonstrate hemodynamically significant stenoses. Focal high-grade stenosis in the left clinoid internal carotid artery. The anterior and middle cerebral arteries do not demonstrate hemodynamically significant stenoses. [place] of both vertebral arteries into the basilar. Basilar artery and posterior cerebral arteries are do not demonstrate hemodynamically significant stenoses. The dural venous sinuses are patent. CTA neck: The origins of the great vessels from the aortic arch do not demonstrate hemodynamically significant stenoses. PAGE 1 Signed Report (CONTINUED) Name: TAMIKA ALEXANDER [facility] : 1965 Age/S: 54 / F [address] [facility] Unit #: [id number] Loc: [place] [address] Phys: Kike Fowler MD Acct: [id number] Dis Date: Status: REG ER PHONE #: [phone] Exam Date: 04/22/2020 0606 FAX #: [phone] Reason: cva EXAMS: CPT CODE: [id number] CTA NECK 37052 <Continued> The bilateral common carotid arteries and bulbs are without hemodynamically significant stenosis. The internal carotid arteries do not demonstrate hemodynamically significant stenosis. Left vertebral artery is dominant. Right vertebral artery terminates in the PICA. 1.3 cm left thyroid lobe nodule. IMPRESSION: No intracranial large vessel occlusion. Focal high-grade stenosis in the left clinoid internal carotid artery, greater than 70%. 1.3 cm left thyroid lobe nodule. Recommend nonemergent thyroid ultrasound for further evaluation. at 0635 Reported and signed by: ULISSES HERRERA M.D. CC: Kike Fowler MD Technologist:Gio Hong, RT(R) CT CTDI: 8.41 DLP: 362.23 Trnscb Date/Time: 04/22/2020 (0635) [email or web address] Orig Print D/T: S: 04/22/2020 (0638) PAGE 2 Signed Report - CT HEAD/BRAIN W/O CONT 2020-04-22 05:46:00 N blessing: TAMIKA ALEXANDER [facility] : 1965 Age/S: 54 / F [address] [facility] Unit #: [id number] Loc: [place] [address] Phys: Kike Fowler MD Acct: [id number] Dis Date: Status: REG ER PHONE #: [phone] Exam Date: 04/22/2020 0537 FAX #: [phone] Reason: cva EXAMS: CPT CODE: [id number] CT HEAD/BRAIN W/O CONT 13915 EXAM: - CT HEAD/BRAIN W/O CONT LOCATION: C3 HISTORY: 54 years-year old Female with cva TECHNIQUE: Computerized tomography images from the skull base to the vertex were obtained. Coronal and sagittal reformatted images are provided. This exam was performed according to our departmental dose-optimization program, which includes automated exposure control, adjustment of the mA and/or kV according to patient size and/or use of it erative reconstruction technique COMPARISON: None FINDINGS: Brain: The brain parenchymal architecture is unremarkable. The brain parenchyma is age appropriate. There is no evidence of an acute territorial infarct. Hemorrhage: There is no CT evidence of acute intracranial hemorrhage. Mass/edema: There is no CT evidence of mass effect, midline shift, or parenchymal edema. Ventricles: There is no evidence of hydrocephalus. Bones: There is no evidence of acute displaced calvarial fracture. Sinuses: The visualized portions of the paranasal sinuses and mastoid air cells are free of significant opacification. Other/Soft Tissues: Unremarkable. IMPRESSION: 1. No CT evidence of acute intracranial abnormality. PAGE 1 Signed Report (CONTINUED) Name: TAMIKA ALEXANDER [facility] : 1965 Age/S: 54 / F [address] Unit #: [id number] Loc: [place] [address] Phys: Kike Fowler MD Acct: [id number] Dis Date: Status: REG ER PHONE #: [phone] Exam Date: 04/22/2020 0537 FAX #: [phone] Reason: cva EXAMS: CPT CODE: [id number] CT HEAD/BRAIN W/O CONT 64306 <Continued> at 0546 Reported and signed by: ULISSES HERRERA M.D. CC: Kike Fowler MD Technologist:Gio Hong, RT(R) CT CTDI: 37.07 DLP: 593.08 Trnscb Date/Time: 04/22/2020 (0546) [email or web address] Orig Print D/T: S: 04/22/2020 (0549) PAGE 2 Signed Report COMPREHENSIVE METABOLIC PANEL 2020-04-22 05:19:00 Test Item SODIUM (test code = NA) 140 mmol/L 136-145 N POTASSIUM (test code = K) 3.2 mmol/L 3.5-5.1 L CHLORIDE (test code = CL) 107 mmol/L 98-107 N CARBON DIOXIDE (test code = CO2) 29 mmol/L 21-32 N GLUCOSE (test code = GLU) 108 mg/dL 70-100 H BLOOD UREA NITROGEN (test code = BUN) 8 mg/dL 7-18 N GLOMERULAR FILTRATION RATE (test code = GFR) > 60.00 >=60 Reporting units: mL/min/1.73m\S\2 (Modified MDRD formula)REFERENCE RANGE: > or = 60 ml/min/1.73M2IF PATIENT IS -SYRIAN, MULTIPLY REPORTED RESULT BY1.21. CREATININE (test code = CREAT) 0.80 mg/dL 0.51-0.95 N TOTAL PROTEIN (test code = PROT) 7.2 g/dl 6.4-8.2 N ALBUMIN (test code = ALB) 3.5 g/dl 3.4-5.0 N CALCIUM (test code = CA) 8.1 mg/dL 8.5-10.1 L BILIRUBIN TOTAL (test code = BILT) 0.6 mg/dl 0.2-1.0 N SGOT/AST (test code = AST) 50 U/L 15-37 H SGPT/ALT (test code = ALT) 55 U/L 12-78 N ALKALINE PHOSPHATASE TOTAL (test code = ALKP) 100 U/L 50-136 N COMPREHENSIVE METABOLIC [id number] 05:18:00* Test Item Value Reference Range Interpretation Comments SODIUM (test code = NA) 140 mmol/L 136-145 N POTASSIUM (test code = K) 3.2 mmol/L 3.5-5.1 L CHLORIDE (test code = CL) 107 mmol/L 98-107 N CARBON DIOXIDE (test code = CO2) 29 mmol/L 21-32 N GLUCOSE (test code = GLU) 108 mg/dL 70-100 H BLOOD UREA NITROGEN (test code = BUN) 8 mg/dL 7-18 N GLOMERULAR FILTRATION RATE (test code = GFR) > 60.00 >=60 Reporting units: mL/min/1.73m\S\2 (Modified MDRD formula)REFERENCE RANGE: > or = 60 ml/min/1.73M2IF PATIENT IS -SYRIAN, MULTIPLY REPORTED RESULT BY1.21. CREATININE (test code = CREAT) 0.80 mg/dL 0.51-0.95 N TOTAL PROTEIN (test code = PROT) 7.2 g/dl 6.4-8.2 N ALBUMIN (test code = ALB) 3.5 g/dl 3.4-5.0 N CALCIUM (test code = CA) 8.1 mg/dL 8.5-10.1 L BILIRUBIN TOTAL (test code = BILT) 0.6 mg/dl 0.2-1.0 N SGOT/AST (test code = AST) 50 U/L 15-37 H SGPT/ALT (test code = ALT) 55 U/L 12-78 N ALKALINE PHOSPHATASE TOTAL (test code = ALKP) U/L 50-136 COMPREHENSIVE METABOLIC [id number] 05:16:00* Test Item Value Reference Range Interpretation Comments SODIUM (test code = NA) 140 mmol/L 136-145 N POTASSIUM (test code = K) 3.2 mmol/L 3.5-5.1 L CHLORIDE (test code = CL) 107 mmol/L 98-107 N CARBON DIOXIDE (test code = CO2) 29 mmol/L 21-32 N GLUCOSE (test code = GLU) 108 mg/dL 70-100 H BLOOD UREA NITROGEN (test code = BUN) 8 mg/dL 7-18 N GLOMERULAR FILTRATION RATE (test code = GFR) > 60.00 >=60 Reporting units: mL/min/1.73m\S\2 (Modified MDRD formula)REFERENCE RANGE: > or = 60 ml/min/1.73M2IF PATIENT IS -SYRIAN, MULTIPLY REPORTED RESULT BY1.. CREATININE (test code = CREAT) 0.80 mg/dL 0.51-0.95 N TOTAL PROTEIN (test code = PROT) g/dl 6.4-8.2 ALBUMIN (test code = ALB) 3.5 g/dl 3.4-5.0 N CALCIUM (test code = CA) 8.1 mg/dL 8.5-10.1 L BILIRUBIN TOTAL (test code = BILT) mg/dl 0.2-1.0 SGOT/AST (test code = AST) 50 U/L 15-37 H SGPT/ALT (test code = ALT) 55 U/L 12-78 N ALKALINE PHOSPHATASE TOTAL (test code = ALKP) U/L 50-136 PROTHROMBIN [id number] 05:16:00* Test Item Value Reference Range Interpretation Comments PROTHROMBIN TIME PATIENT (test code = PTP) 10.5 SECONDS 8.7-12.1 N THERAPEUTIC LEVEL: 1.5 TO 1.9 TIMES NORMAL RANGE INTERNATIONAL NORMAL RATIO (test code = INR) 1.0 Recommended Therapeutic PT Ratios For Oral AnticoagulantTherapy. CONDITION INT'L NORMALIZED PT RATIO Prophylaxis of venous thrombosis 2.0 - 3.0in high risk medical or surgicalpatients, treatment of venousthrombosis, prevention of embolism. Prevention of recurrent embolism, 2.5 - 3.5or treatment of patients with mechanicalprosthetic heart valves. THROMBOPLASTIN TIME [id number] 05:16:00* Test Item Value Reference Range Interpretation Comments THROMBOPLASTIN TIME PARTIAL (test code = PTT) 28.2 seconds 22.8-34. 4 N COMPREHENSIVE METABOLIC [id number] 05:14:00* Test Item Value Reference Range Interpretation Comments SODIUM (test code = NA) 140 mmol/L 136-145 N POTASSIUM (test code = K) 3.2 mmol/L 3.5-5.1 L CHLORIDE (test code = CL) 107 mmol/L 98-107 N CARBON DIOXIDE (test code = CO2) 29 mmol/L 21-32 N GLUCOSE (test code = GLU) 108 mg/dL 70-100 H BLOOD UREA NITROGEN (test code = BUN) 8 mg/dL 7-18 N GLOMERULAR FILTRATION RATE (test code = GFR) >=60 CREATININE (test code = CREAT) mg/dL 0.51-0.95 TOTAL PROTEIN (test code = PROT) g/dl 6.4-8.2 ALBUMIN (test code = ALB) 3.5 g/dl 3.4-5.0 N CALCIUM (test code = CA) 8.1 mg/dL 8.5-10.1 L BILIRUBIN TOTAL (test code = BILT) mg/dl 0.2-1.0 SGOT/AST (test code = AST) U/L 15-37 SGPT/ALT (test code = ALT) U/L 12-78 ALKALINE PHOSPHATASE TOTAL (test code = ALKP) U/L 50-136 COMPREHENSIVE METABOLIC [id number] 05:13:00* Test Item Value Reference Range Interpretation Comments SODIUM (test code = NA) 140 mmol/L 136-145 N POTASSIUM (test code = K) 3.2 mmol/L 3.5-5.1 L CHLORIDE (test code = CL) 107 mmol/L 98-107 N CARBON DIOXIDE (test code = CO2) mmol/L 21-32 GLUCOSE (test code = GLU) mg/dL 70-100 BLOOD UREA NITROGEN (test code = BUN) mg/dL 7-18 GLOMERULAR FILTRATION RATE (test code = GFR) >=60 CREATININE (test code = CREAT) mg/dL 0.51-0.95 TOTAL PROTEIN (test code = PROT) g/dl 6.4-8.2 ALBUMIN (test code = ALB) g/dl 3.4-5.0 CALCIUM (test code = CA) 8.1 mg/dL 8.5-10.1 L BILIRUBIN TOTAL (test code = BILT) mg/dl 0.2-1.0 SGOT/AST (test code = AST) U/L 15-37 SGPT/ALT (test code = ALT) U/L 12-78 ALKALINE PHOSPHATASE TOTAL (test code = ALKP) U/L 50-136 COMPREHENSIVE METABOLIC [id number] 05:11:00* Test Item Value Reference Range Interpretation Comments SODIUM (test code = NA) 140 mmol/L 136-145 N POTASSIUM (test code = K) 3.2 mmol/L 3.5-5.1 L CHLORIDE (test code = CL) 107 mmol/L 98-107 N CARBON DIOXIDE (test code = CO2) mmol/L 21-32 GLUCOSE (test code = GLU) mg/dL 70-100 BLOOD UREA NITROGEN (test code = BUN) mg/dL 7-18 GLOMERULAR FILTRATION RATE (test code = GFR) >=60 CREATININE (test code = CREAT) mg/dL 0.51-0.95 TOTAL PROTEIN (test code = PROT) g/dl 6.4-8.2 ALBUMIN (test code = ALB) g/dl 3.4-5.0 CALCIUM (test code = CA) mg/dL 8.5-10.1 BILIRUBIN TOTAL (test code = BILT) mg/dl 0.2-1.0 SGOT/AST (test code = AST) U/L 15-37 SGPT/ALT (test code = ALT) U/L 12-78 ALKALINE PHOSPHATASE TOTAL (test code = ALKP) U/L 50-136 CBC W/AUTO [id number] 05:04:00* Test Item Value Reference Range Interpretation Comments WHITE BLOOD CELL (test code = WBC) 5.0 X10(3) 4.5-11.0 N RED BLOOD CELL (test code = RBC) 4.14 X10(6) 4.2-5.4 L HEMOGLOBIN (test code = HGB) 12.7 g/dL 12.5-16.0 N HEMATOCRIT (test code = HCT) 38.8 % 37.0-47.0 N MEAN CELL VOLUME (test code = MCV) 93.7 fl 78-100 N MEAN CELL HGB (test code = MCH) 30.7 pg 26.0-34.0 N MEAN CELL HGB CONCETRATION (test code = MCHC) 32.7 g/dl 30.0-37. 0 N RED CELL DISTRIBUTION WIDTH (test code = RDW) 12.6 % 11.5-14. 5 N PLATELET COUNT (test code = PLT) 345 X10(3) 150-350 N MEAN PLATELET VOLUME (test code = MPV) 9.9 fl 8.7-11.4 N NEUTROPHIL % (test code = NT%) 62.9 % 36.0-66.0 N IMMATURE GRANULOCYTE % (test code = IG%) 0.6 % 0.0-2.0 N LYMPHOCYTE % (test code = LY%) 23.1 % 16.0-50.0 N MONOCYTE % (test code = MO%) 12.0 % 0.0-13.0 N EOSINOPHIL % (test code = EO%) 0.6 % 0.0-4.5 N BASOPHIL % (test code = BA%) 0.8 % 0.0-1.5 N NUCLEATED RBC % (test code = NRBC%) 0.0 % 0-0.2 N NEUTROPHIL # (test code = NT#) 3.16 X10(3) 1.70-7.70 N IMMATURE GRANULOCYTE # (test code = IG#) 0.03 X10(3)uL 0.00-0.03 N LYMPHOCYTE # (test code = LY#) 1.16 X10(3) 0.70-4.00 N MONOCYTE # (test code = MO#) 0.60 X10(3) 0.00-0.89 N EOSINOPHIL # (test code = EO#) 0.03 X10(3) 0.00-0.60 N BASOPHIL # (test code = BA#) 0.04 X10(3) 0.00-0.20 N NUCLEATED RBC # (test code = NRBC#) 0.00 K/mm3 0.0-0.1 N [O] Flu Test (in Office )2019-10-29 09:12:26* Test Item Value Reference Range Interpretation Comments Flu A (test code = Flu A) N N Flu B (test code = Flu B) N N [facility] [id number] 08:24:00EXAM: LIVERDATE: 06/29/2019 8:24 CDTINDICATION: - R79.89 Other specified abnormal findings of blood chemistryADDITIONAL INFORMATION: None.COMPARISON: None. TECHNIQUE: Multiplanar grayscale and color Doppler ultrasound of the rightupper quadrant.FINDINGS:Liver: Craniocaudal length: 18.4 cm. Normal. Echogenicity: I ncreased. Surface nodularity: None Mass (size and location): None.Portal vein: Normal.Bile ducts: Common bile duct diameter: 0.5 cm. Normal. Intrahepatic du cts: Normal.Gallbladder: Gallstones: None. Gallbladder sludge: Numerous gallst ones fill the gallbladder whichdemonstrate shadowing. Wall echo shadow sign is n oted. Gallbladder wall: 0.2 cm. Normal. Pericholecystic fluid: None. Sonograp hic Simpson sign: Absent.Pancreas: Head and uncinate process: Normal. Body and tail: Not seen.Right kidney: Hydronephrosis: None. Size: 12.1 x 4.1 x 4.8 cm. Normal. Echogenicity: Normal. Mass/Stone/Cyst (size and location): None.Ascite s: None.IMPRESSION:1. Hepatomegaly with diffuse hepatic steatosis.2. Numerous gallstones fill the gallbladder demonstrate a wall echo shadowsign. No sonograp hic evidence of cholecystitis.--Read by: Lucia Durand MDDictated Date/time: 06/29/19 09:03Electronically Signed by: Lucia Durand MD 06/29/1909:20FINAL [facility]PORTUn[facility]] LIPID PANEL 2019-06-26 11:02:00* Test Item Value Reference Range Interpretation Comments CHOLESTEROL, TOTAL; Above High Threshold (test code = 2093-3) 313 m g/dl <200 HDL CHOLESTEROL; Below Low Threshold (test code = 2085-9) 40 mg/dl >50 TRIGLYCERIDES; Above High Threshold (test code = 2571-8) 246 mg/dl <150 If a non-fasting specimen was collected, considerrepeat triglyceride testing on a fasting specimenif clinically indicated. Luis et al. J. of Clin. Lipidol. 2015;9:129-169. LDL-CHOLESTEROL; Above High Threshold (test code = 69752-3) 227 {MG/DL GUME} LDL-C levels > or = 190 mg/dL may indica te familial hypercholesterolemia (FH). Clinical assessment and measurement of blood lipid levels should be considered for all first degree relatives of patients with an FH diagnosis. For questions about testing for familialhypercholesterolemia, please call [place] at [email or web address].Luis Dexter, et al. J National Lipid Association Recommendations for Patient-Centered Management of Dyslipidemia: Part 1 Journal of Clinical Lipidology 2015;9(2), 129-169.Reference range: <100 Desirable range <100 mg/dL for primary prevention; <70 mg/dL for patients with CHD or diabetic patients with > or = 2 CHD risk factors. LDL-C is now calculated using the Donnie-Preston calculation, which is a validated novel method providing better accuracy than the Friedewald equation in the estimation of LDL-C. Donnie SS et al. MILENA. 2013;310(19): 5765-5450 (http://education.Multichannel/faq/KKP012) CHOL/HDLC RATIO (test code = CHOL/HDLC RATIO) 7.8 {CALC} <5.0 NON HDL CHOLESTEROL (test code = NON HDL CHOLESTEROL) 273 {MG/DL C AL} <130 Non-HDL level > or = 220 is very high and may indicate genetic familial hypercholesterolemia (FH). Clinical assessment and measurement of blood lipid levels should be considered for all first-degree relatives of patients with an FH diagnosis. For patients with diabetes plus 1 major ASCVD risk factor, treating to a non-HDL-C goal of <100 mg/dL (LDL-C of <70 mg/dL) is considered a therapeutic option. [facility][QL] CMP [id number] 11:02:00* Test Item Value Reference Range Interpretation Comments GLUCOSE; Above High Threshold (test code = 1547-9) 126 mg/dl 65- 99 Fasting reference interval For someone without known diabetes, a glucosevalue >125 mg/dL indicates that they may havediabetes and this should be confirmed with afollow- up test. UREA NITROGEN (BUN) (test code = UREA NITROGEN (BUN)) 10 mg/dl 7-25 N CREATININE (test code = CREATININE) 0.65 mg/dl 0.50-1.05 N For patients >49 years of age, the reference limitfor Creatinine is approximately 13% higher for peopleidentified as -Eritrean. eGFR NON- (test code = eGFR NON-KRISTEN N SYRIAN) 102 {ML/MIN/1.7} > OR = 60 N eGFR (test code = eGFR ) 11 8 {ML/MIN/1.7} > OR = 60 N BUN/CREATININE RATIO (test code = BUN/CREATININE RATIO) NOT APPLICA BLE 6-22 SODIUM (test code = SODIUM) 140 mmol/L 135-146 N POTASSIUM (test code = POTASSIUM) 4.7 mmol/L 3.5-5.3 N CHLORIDE (test code = CHLORIDE) 101 mmol/L 98-110 N CARBON DIOXIDE (test code = CARBON DIOXIDE) 31 mmol/L 20-32 N CALCIUM (test code = CALCIUM) 9.6 mg/dl 8.6-10.4 N PROTEIN, TOTAL (test code = PROTEIN, TOTAL) 6.9 g/dl 6.1-8.1 N ALBUMIN (test code = ALBUMIN) 4.1 g/dl 3.6-5.1 N GLOBULIN (test code = GLOBULIN) 2.8 {G/DL CALC} 1.9-3.7 N ALBUMIN/GLOBULIN RATIO (test code = ALBUMIN/GLOBULIN RATIO) 1.5 {CALC} 1.0-2.5 N BILIRUBIN, TOTAL; Above High Threshold (test code = 53345-7) 1.3 mg/dl 0.2-1.2 ALKALINE PHSPHATASE (test code = ALKALINE PHSPHATASE) 99 u/l 33-130 N AST; Above High Threshold (test code = 1916-6) 38 u/l 10-35 ALT; Above High Threshold (test code = 1742-6) 51 u/l 6-29 [facility]] URINALYSIS, [id number] 11:02:00* Test Item Value Reference Range Interpretation Comments COLOR; Normal (test code = 5778-6) YELLOW YELLOW N APPEARANCE (test code = APPEARANCE) CLOUDY CLEAR A SPECIFIC GRAVITY; Normal (test code = 2965-2) 1.015 1.001-1. 035 N PH; Normal (test code = 2756-5) 7.0 5.0-8.0 N GLUCOSE; Normal (test code = 1547-9) NEGATIVE NEGATIVE N BILIRUBIN; Normal (test code = 25504-1) NEGATIVE NEGATIVE N KETONES; Normal (test code = 32921-3) NEGATIVE NEGATIVE N OCCULT BLOOD; Normal (test code = 53496-5) NEGATIVE NEGATIVE N PROTEIN; Normal (test code = 83130-3) NEGATIVE NEGATIVE N NITRITE; Abnormal (test code = 56291-7) POSITIVE NEGATIVE A LEUKOCYTE ESTERASE (test code = LEUKOCYTE ESTERASE) 3+ NE GATIVE A WBC; Abnormal (test code = 6690-2) 10-20 < OR = 5 A RBC; Normal (test code = 789-8) NONE SEEN < OR = 2 N SQUAMOUS EPITHELIAL CELLS; Abnormal (test code = 52592-1) > OR = 28 < OR = 5 A BACTERIA; Abnormal (test code = 630-4) MANY NONE SEEN A HYALINE CAST; Normal (test code = 42575-0) NONE SEEN NONE SEEN N [facility]] CBC (INCLUDES DIFF/PLT)2019-06-26 11:02:00* Test Item Value Reference Range Interpretation Comments WHITE BLOOD CELL COUNT (test code = WHITE BLOOD CELL COUNT) 7.3 {Thousand/u} 3.8-10.8 N RED BLOOD CELL COUNT (test code = RED BLOOD CELL COUNT) 4.69 {Million/uL} 3.80-5.10 N HEMAGLOBIN; Normal (test code = 01940-1) 14.6 g/dl 11.7-15.5 N HEMATOCRIT; Normal (test code = 4544-3) 42.1 % 35.0-45.0 N MCV; Normal (test code = 787-2) 89.8 fL 80.0-100.0 N MCHC; Normal (test code = 51108-0) 34.7 g/dl 32.0-36.0 N RDW; Normal (test code = 788-0) 12.3 % 11.0-15.0 N PLATELET COUNT; Above High Threshold (test code = 777-3) 445 {Thousand/u} 140-400 MPV; Normal (test code = 71651-9) 10.1 fL 7.5-12.5 N ABSOLUTE NEUTROPHILS (test code = ABSOLUTE NEUTROPHILS) 3927 {cells/uL} 9244-4256 N ABSOLUTE LYMPHOCYTES (test code = ABSOLUTE LYMPHOCYTES) 2774 {cells/uL} 850-3900 N ABSOLUTE MONOCYTES (test code = ABSOLUTE MONOCYTES) 358 {cells/uL} 200-950 N ABSOLUTE EOSINOPHILS (test code = ABSOLUTE EOSINOPHILS) 183 {cells/ uL} 15-500 N ABSOLUTE BASOPHILS (test code = ABSOLUTE BASOPHILS) 58 {cells/uL} 0 -200 N NEUTROPHILS (test code = NEUTROPHILS) 53.8 % N LYMPHOCYTES (test code = LYMPHOCYTES) 38.0 % N MONOCYTES; Normal (test code = 10807-9) 4.9 % N EOSINOPHILS; Normal (test code = 71521-0) 2.5 % N BASOPHILS; Normal (test code = 77965-5) 0.8 % N [facility]] TSH, 3RD GENERATION W/REFLEX TO FT4 2019-06-26 11:02:00* Test Item Value Reference Range Interpretation Comments TSH, 3RD GENERATION W/REFLEX TO FT4 (aren t code = TSH, 3RD GENERATION W/REFLEX TO FT4) 1.26 {MIU/L} N Reference Range > or = 20 Years 0.40-4.50 Ranges First trimester 0.26-2.66 Second trimester 0.55-2.73 Third trimester 0.43-2.91 [facility] [id number] 00:00:00* Test Item Value Reference Range Interpretation Comments REPORT (test code = REPORT) See Comment [facility]
--- OUTSIDE RECORDS SUMMARY | 2020-05-15 18:54 | XMS REPORT | Summary of Care ---
Author Author NEREYDA Garcia, TAMIKA ONEILL Organization Unknown Address Unknown Phone Unavailable Care Team Providers Care Doubling Machine Operator Name Role Phone NATALIA N.P., LESLIE Unavailable Unavailable NEREYDA Garcia, PITO Unavailable Unavailable NEREYDA VILLAGOMEZ UT, PITO HERNANDEZ Unavailable Unavailable FRANCES MEDICAL PRACTICE MANAGER, MERLYN Verdugo Unavailable Unavailable REINA MEDICAL PRACTICE MANAGER, KURT Unavailable Unavailable NATALIA MEDICAL PRACTICE MANAGER-C, LESLIE D Unavailable Unavailable DRU VILLAGOMEZ, NEEL Unavailable Unavailable [...] 0.5 ML Intramuscula r Suspension Lot #: [id number] on: 03-Jun-2015 Fluzone Quadrivalent 0.5 ML Intramuscula r Suspension Lot #: [id number] on: 10-Jun-2016 Fluzone Quadrivalent 0.5 ML Intramuscula r Suspension Lot #: [id number] on: 17-Oct-2017 Hepatitis A, adult Lot #: [...] smoker Vital Signs Date Test Result Details 37-Mhd-84196:52 BP Systolic 136 mm[Hg] Status: Comments: Lo [...] ality: Normal Results Date Description Value Details 43-Xnz-87521:12 [O] Flu Test (in Office ) Flu [...] Acetate 80 MG/ML Injection Suspension Plan* Rapid influenza test A&B: Negative * Acute bronchitis with reactive airway disease and pharyngitis: * - In office Nebulizer treatment with Levalbuterol HCl 1.25 mg per 3 mL inhalation solution. * - Methylprednisolone 80 mg IM now * - Medications prescribed: * - START Albuterol HFA inhaler 2 inhalations, four times daily until well * - START Doxycycline 100 mg, BID x 10 days, may discontinue medication after 7 days if feeling well * - START Prednisone 10 mg, 1 tab daily after breakfast x 7 days * - Remain well-hydrated, increase intake of liquids. * Return to clinic if symptoms worsen or fail to improve by 48 hours. Instructions Name Dates Details Instructions not documented [...]
--- OUTSIDE RECORDS SUMMARY | 2020-05-15 18:54 | XMS REPORT | Summary of Care ---
Author Author [facility] Address [address] [place] [address] Phone Unavailable Care Team Providers Care Assembler Wet Wash Name Role Phone NATALIA Ramirez, LESLIE Unavailable Unavailable NEREYDA Garcia, PITO Unavailable Stephan DAWN MD OR, PITO HERNANDEZ Unavailable Unavailable FRANCES RESTAURANT HOURLY MANAGER, MERLYN Verdugo Unavailable Unavailable REINA RESTAURANT HOURLY MANAGER, KURT Unavailable Unavailable NATALIA RESTAURANT HOURLY MANAGER-C, LESLIE Singh Unavailable Unavailable DRU VILLAGOMEZ, NEEL Unavailable Unavailable ALMA NGUYEN OR, ANGEL LUIS Escamilla Unavailable Unavailable Unavailable Unavailable Functional Status Name Dates Details Functional status health issues are not documented Status: Name Dates Details Cognitive status health issues are not d ocumented Status: Problems Name Dates Details 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, 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 Normal routine physical examination (V70 .0, Z00.00) Status: Active Colon cancer screening (V76.51, Z12.11) Status: Active Constipation (564.00, K59.00) Status: Active Hearing loss, sudden, left (388.2, H91.2 2) Status: Active 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, 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 Dysgeusia (781.1, R43.2) Status: Active 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, 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 Mood disorder (296.90, F39) Status: Active Insomnia (780.52, G47.00) Status: Active Need for hepatitis A vaccination (V05.3, Z23) Status: Active Need for influenza vaccination (V04.81, Z23) Status: Active GERD (gastroesophageal reflux disease) ( [...] other specified organisms (462, J02.8) Status: Active Headache, chronic daily (784.0, R51) Status: Active Major depression, chronic (296.20, F32.9 ) Status: Active Controlled depression (311, F32.9) Status: Active Papanicolaou smear for cervical cancer s creening (V76.2, Z12.4) Status: Active Dizziness (780.4, R42) Status: Active Tinnitus (388.30, H93.19) Status: Active Hearing loss (389.9, H91.90) Status: Active Conductive hearing loss (389.00, H90.2) Status: Active Myalgia and myositis (729.1) Status: Active Common migraine without aura (346.10, G4 3.009) Status: Active Chronic insomnia (780.52, F51.04) Status: Active Prediabetes (790.29, R73.03) Status: Active 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, 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 Encounter for gynecological examination (V72.31, Z01.419) Status: Active Acute urinary tract infection (599.0, N3 9.0) Status: Active Screening for hypothyroidism (V77.0, Z13 .29) Status: Active Encounter for vitamin deficiency screeni ng (V77.99, Z13.21) Status: Active Menopausal symptoms (627.2, N95.1) Status: Active On statin therapy (V58.69, Z79.899) Status: Active Status post gastric banding surgery (V45 .86, Z98.84) Status: Active Abnormal CBC (790.6, R79.89) Status: Active Medications Name Dates Details buPROPion HCl ER (XL) 150 MG Oral Tablet Extended Release 24 Hour TAKE 2 TABLETS BY MOUTH DAILY Quantity: 180 NATALIA Perry.LESLIE Jung * Start : 01-Jul-2016 Active traZODone HCl - 50 MG Oral Tablet TAKE 1/2 OR 1 TABLET AT BEDTIME * Quantity: 90 Refills: 1 NATALIA Perry.PLESLIE Kang * Start : 01-Jul-2016 Active Atorvastatin Calcium 20 MG Oral Tablet TAKE 1 TABLET DAILY * Quantity: 90 Refills: 1 NATALIA Perry.PLESLIE Kang * Start : 01-Jul-2016 Active Pantoprazole Sodium 40 MG Oral Tablet Delayed Release TAKE 1 TABLET BY MOUTH DAILY PRN * Quantity: 90 Refills: 1 PITO DAWN M.D. * Start : 17-Oct-2017 Active Doxycycline Hyclate 100 MG Oral Capsule TAKE 1 CAPSULE TWICE A DAY WITH FULL GLASS OF WATER FOR 10 DAYS * Quantity: 20 Refills: 0 SANTHOSH DAWN M.D.NDA * Start : 29-Oct-2019 Active predniSONE 10 MG Oral Tablet TAKE 1 TABLET DAILY AFTER BREAKFAST FOR 7 DAYS * Quantity: 7 Refills: 0 NEREYDA Garcia, PITO * Start : 29-Oct-2019 Active Albuterol Sulfate HFA 108 (90 Base) MCG/ACT Inhalation Aerosol Solution 2 INHALATIONS FOUR TIMES A DAY UNTIL WELL * Quantity: 1 Refills: 0 NEREYDA Garcia, PITO * Start : 29-Oct-2019 Active 6.7 GM Inhaler Allergies and Adverse Reactions Name Dates Details [...] 0.5 ML Intramuscula r Suspension Lot #: [id number] on: 03-Jun-2015 Fluzone Quadrivalent 0.5 ML Intramuscula r Suspension Lot #: [id number] on: 10-Jun-2016 Fluzone Quadrivalent 0.5 ML Intramuscula r Suspension Lot #: [id number] on: 17-Oct-2017 Hepatitis A, adult Lot #: [...] smoker Vital Signs Date Test Result Details 40-Irw-22182:52 BP Systolic 136 mm[Hg] Status: Comments: Lo [...] ality: Normal Results Date Description Value Details 98-Iyu-06482:12 [O] Flu Test (in Office ) Flu [...]
--- OUTSIDE RECORDS SUMMARY | 2020-05-15 18:55 | XMS REPORT | Summary of Care ---
Author Author NEREYDA Garcia, TAMIKA ONEILL Organization Unknown Address Unknown Phone Unavailable Care Team Providers Care Micrographics Services Supervisor Name Role Phone LESLIE FISHER APRN Unavailable Unavailable NEREYDA Garcia, PITO Unavailable Unavailable NEREYDA VILLAGOMEZ UT, PITO HERNANDEZ Unavailable Unavailable FRANCES COSTUMED CHARACTER ENTERTAINER, MERLYN Verdugo Unavailable Unavailable REINA COSTUMED CHARACTER ENTERTAINER, KURT Unavailable Unavailable NATALIA COSTUMED CHARACTER ENTERTAINER-C, LESLIE D Unavailable Unavailable ALMA NGUYEN UT, ANGEL LUIS W Unavailable Unavailable DRU VILLAGOMEZ, NEEL Unavailable Unavailable Unavailable Unavailable Functional Status Name [...] Active Other hyperlipidemia (272.4, E78.49) Status: Active Cervical cancer screening (V76.2, Z12.4) Status: Active Well woman exam with routine gynecologic al exam (V72.31, Z01.419) Status: Active Screening for human papillomavirus (HPV) (V73.81, Z11.51) Status: Active Breast cancer screening (V76.10, Z12.39) Status: Active Cholelithiases (574.20, K80.20) Status: Active Hepatic steatosis (571.8, K76.0) Status: Active Glycosuria (791.5, R81) Status: Active Cough variant asthma (493.82, J45.991) Status: Active Acute bronchitis due to other specified organisms (466.0, J20.8) Status: Active Mild persistent reactive airway disease without complication (493.90, J45.30) Status: Active Acute pharyngitis due to other specified organisms (462, J02.8) Status: Active Encounter for monitoring statin therapy (V58.83, Z51.81) Status: Active New onset type 2 diabetes mellitus (250. 00, E11.9) Status: Active Cognitive impairment (294.9, R41.89) Status: Active Subjective memory complaints (780.93, R4 1.89) Status: Active Need for Tdap vaccination (V06.1, Z23) Status: Active Standardized adult depression screening tool completed (Z13.31) Status: Active Overweight (BMI 25.0-29.9) (278.02, E66. 3) Status: Active Body mass index (BMI) of 29.0-29.9 in ad ult (V85.25, Z68.29) Status: Active Medications Name Dates Details Atorvastatin Calcium 20 MG Oral Tablet TAKE 1 TABLET DAILY Quantity: 90 LESLIE FISHER APRN * Start : 01-Jul-2016 Active traZODone HCl - 50 MG Oral Tablet TAKE 1/2 OR 1 TABLET AT BEDTIME * Quantity: 90 Refills: 1 LESLIE FISHER APRN * Start : 01-Jul-2016 Active buPROPion HCl ER (XL) 150 MG Oral Tablet Extended Release 24 Hour TAKE 2 TABLETS BY MOUTH DAILY * Quantity: 180 Refills: 1 LESLIE FISHER APRN * Start : 01-Jul-2016 Active Pantoprazole Sodium 40 MG Oral Tablet Delayed Release TAKE 1 TABLET BY MOUTH DAILY PRN * Quantity: 90 Refills: 1 PITO DAWN M.D. * Start : 17-Oct-2017 Active Albuterol Sulfate HFA 108 (90 Base) MCG/ACT Inhalation Aerosol Solution 2 INHALATIONS FOUR TIMES A DAY UNTIL WELL * Quantity: 1 Refills: 2 SANTHOSH DAWN M.D.NDA * Start : 29-Oct-2019 Active 6.7 GM Inhaler Januvia 100 MG Oral Tablet TAKE 1 TABLET DAILY. * Quantity: 42 Refills: 0 SANTHOSH DAWN M.D.NDA * Start : 19-Nov-2019 Active Allergies and Adverse Reactions Name Dates [...] Z78.9) Status: Resolved Procedures Procedure Dates Details [QLH] METHYLMALONIC ACID Date: 19-Nov-2019 [QLH] VITAMIN B12 Date: 19-Nov-2019 [QLH] TSH, 3RD GENERATION W/REFLEX TO FT4 Date: 19-Nov-2019 [QH] LIPID PANEL WITH REFLEX TO DIRECT LDL Date: 19-Nov-2019 [QLH] HEMOGLOBIN A1c Date: 19-Nov-2019 [QLH] CMP W/EGFR Date: 19-Nov-2019 History of Gastric Surgery Completed History of Hysterectomy Completed Immunization Name Dates Details Td on: Aug-1996 Fluzone Quadrivalent 0.5 ML Intramuscula r Suspension Lot #: [id number] on: 03-Jun-2015 Fluzone Quadrivalent 0.5 ML Intramuscula r Suspension Lot #: [id number] on: 10-Jun-2016 Fluzone Quadrivalent 0.5 ML Intramuscula r Suspension Lot #: [id number] on: 17-Oct-2017 Hepatitis A, adult Lot #: [id number] on: 17-Oct-2017 Tdap (Boostrix) Lot #: [id number] on: 19-Nov-2019 Family History Name Dates Details Family history [...] smoker Vital Signs Date Test Result Details :24 BP Systolic 128 mm[Hg] Status: Comments: Lo cation: LUE; Position: Sitting BP Diastolic 82 mm[Hg] Status: Comments: Lo cation: LUE; Position: Sitting :32 BP Systolic 120 mm[Hg] Status: Comments: Lo cation: LUE; Position: Sitting BP Diastolic 76 mm[Hg] Status: Comments: Lo cation: LUE; Position: Sitting :27 BP Systolic 143 mm[Hg] Status: Comments: Lo cation: LUE; Position: Sitting BP Diastolic 77 mm[Hg] Status: Comments: Lo cation: LUE; Position: Sitting Physical Findings 6 Status: Comments: PH Q-9 Adult Depression Screening Physical Findings 0 Status: Comments: Al cohol Screen - How many times in the past yr have you had 5 (for M) or 4 (for F) or 4 (for all > 65yrs) or more drinks in a day? Height 61 in Status: Weight 158.1 lb Status: Body Mass Index Calculated 29.87 kg/m2 Status: Body Surface Area Calculated 1.71 m2 Status: Temperature 97.8 f Status: Comments: Me thod: Temporal Heart Rate 91 /min Status: Comments: Lo cation: L Radial; Respiration Rate 16 /min Status: Comments: Qu ality: Normal Physical Findings 0 Status: Comments: Pa in Scale :52 BP Systolic 136 mm[Hg] Status: Comments: Lo [...] ality: Normal Results Date Description Value Details :12 [O] Flu Test (in Office ) Flu A N (Normal) Flu B N (Normal) Plan of Care Name Dates Details Planned Observations Planned Goals not documented Planned Encounters Neuropsychology Evaluation at [facility] Ref[facility] al Interventions Provided Medication Changes* Albuterol Sulfate HFA 108 (90 Base) MCG/ACT Inhalation Aerosol Solution - Renew * Januvia 100 MG Oral Tablet - Start Labs/Procedures/Imaging* [QH] LIPID PANEL WITH REFLEX TO DIRECT LDL; To Be Done: 19 Nov 2019 * [QLH] CMP W/EGFR; To Be Done: 19 Nov 2019 * [QLH] HEMOGLOBIN A1c; To Be Done: 19 Nov 2019 * [QLH] METHYLMALONIC ACID; To Be Done: 19 Nov 2019 * [QLH] TSH, 3RD GENERATION W/REFLEX TO FT4; To Be Done: 19 Nov 2019 * [QLH] VITAMIN B12; To Be Done: 19 Nov 2019 * Tobacco Use Screening; Done: 19 Nov 2019 * Tobacco Use Screening; Done: 19 Nov 2019 * Tobacco Use Screening; Done: 19 Nov 2019 Medications/Immunizations Administered* Tdap (Boostrix); Done: 19 Nov 2019 Plan* Type 2 diabetes mellitus: * - START Januvia 100 mg daily * - Lab: Hemoglobin A1c * PHQ-9 total score of 6 with PHQ- 2 of 2: * - Bupropion XL 150 mg, 2 tabs daily * Need for Tdap vaccine: Tdap vaccine administered in office today. * Overweight with BMI of 29.87: Diet and exercise counseling * Follow up in otherwise, follow up prn. Instructions Name Dates Details Instructions not documented Encounters Appointment; PITO DAWN M.D. Encounter Diagnosis: Problem not documented On: 06-Dec-2017 8:00 Appointment; PITO DAWN M.D. Encounter Diagnosis: Problem not documented On: 06-Dec-2017 8:15 Appointment; ASHLEY TAYLOR M.D. Encounter Diagnosis: Problem not documented On: 20-Dec-2017 14:00 Appointment; MERLYN DANIELS APRN Encounter Diagnosis: Problem not documented On: 29-Dec-2017 15:30 Appointment; NEEL GONSALES M.D. Encounter Diagnosis: Problem not documented On: 22-Feb-2018 10:45 Appointment; PJ BERNABE RD Encounter Diagnosis: Problem not documented On: 06-Mar-2018 9:00 Appointment; PITO DAWN M.D. Encounter Diagnosis: Problem not documented On: 06-Jul-2018 8:30 Appointment; PITO DAWN M.D. Encounter Diagnosis: Problem not documented On: 11-Aug-2018 11:00 Appointment; MERLYN DANIELS APRN Encounter Diagnosis: Problem not documented On: 14-Dec-2018 13:45 Appointment; KURT HUANG APRN Encounter Diagnosis: Problem not documented On: 17-Jan-2019 8:00 Appointment; LESLIE FISHER APRN Encounter Diagnosis: Problem not documented On: 04-Apr-2019 [...] Problem not documented On: 29-Oct-2019 8:30 Appointment; ENEL GONSALES M.D. Encounter Diagnosis: Problem not documented On: 31-Oct-2019 15:15 Appointment; PITO DAWN M.D. Encounter Diagnosis: Problem not documented On: 19-Nov-2019 10:30
--- OUTSIDE RECORDS SUMMARY | 2020-05-15 18:55 | XMS REPORT | Summary of Care ---
Author Author [facility] Address [address] [place] [address] Phone Unavailable Care Team Providers Care Lye Machine Operator Name Role Phone LESLIE FISHER APRN Unavailable Unavailable NEREYDA Garcia, PITO Unavailable Unavailable NEREYDA VILLAGOMEZ [place], PITO HERNANDEZ Unavailable Unavailable FRANCES SALES MANAGER [place], MERLYN Verdugo Unavailable Unavailable REINA SALES MANAGER [place], KURT Unavailable Unavailable NATALIA SALES MANAGER [place]-C, LESLIE Singh Unavailable Unavailable ALMA NGUYEN [place], ANGEL LUIS W Unavailable Unavailable CLAUDIA BARRETT FNC RNBC CPN, DIONY Unavailable Unav alvaroable DRU VILLAGOMEZ, NEEL Unavailable Unavailable Unavailable Unavailable [...] Essential (primary) hypertension (401.9, I10) Status: Active Cervical cancer screening (V76.2, Z12.4) [...] other specified organisms (462, J02.8) Status: Active New onset type 2 diabetes mellitus (250. 00, E11.9) Status: Active Cognitive impairment (294.9, R41.89) Status: Active Subjective memory complaints (780.93, R4 1.89) Status: Active Other hyperlipidemia (272.4, E78.49) Status: Active Encounter for monitoring statin therapy (V58.83, Z51.81) Status: Active Need for Tdap vaccination (V06.1, Z23) Status: Active Encounter for mini-mental status examina tion Status: Active Standardized adult depression screening tool completed (Z13.31) Status: Active Overweight (BMI 25.0-29.9) Status: Active Body mass index (BMI) of [...] UNTIL WELL * Quantity: 1 Refills: 2 NEREYDA Garcia, PITO * Start : 29-Oct-2019 Active 6.7 GM Inhaler Januvia 100 MG Oral Tablet TAKE 1 TABLET DAILY. * Quantity: 42 Refills: 0 PITO DAWN M.D. * Start : 19-Nov-2019 Active Allergies and [...] Z78.9) Status: Resolved Procedures Procedure Dates Details [QL] METHYLMALONIC ACID Date: 19-Nov-2019 [QL] VITAMIN B12 Date: 19-Nov-2019 [QL] TSH, 3RD GENERATION W/REFLEX TO FT4 Date: 19-Nov-2019 [Q] LIPID PANEL WITH REFLEX TO DIRECT LDL Date: 19-Nov-2019 [QL] HEMOGLOBIN A1c Date: 19-Nov-2019 [QL] CMP W/EGFR Date: 19-Nov-2019 History of Gastric Surgery Completed History of Hysterectomy Completed Immunization Name Dates Details Td on: Aug-1996 Fluzone Quadrivalent 0.5 ML Intramuscula r Suspension Lot #: [id number] on: 03-Jun-2015 Fluzone Quadrivalent 0.5 ML Intramuscula r Suspension Lot #: [id number] on: 10-Jun-2016 Fluzone Quadrivalent 0.5 ML Intramuscula r Suspension Lot #: [id number] on: 17-Oct-2017 Hepatitis A, adult Lot #: [...] Dates Details - Status: Name Dates Details Ex-smoker (finding) Vital Signs Date Test Result Details No Known Vitals to report Results Date Description Value Details Results not documented Plan of Care Name Dates Details Planned Observations Planned Goals not documented Instructions Name Dates Details Instructions not documented Encounters Appointment; NEEL GONSALES M.D. Encounter Diagnosis: Problem [...] Diagnosis: Problem not documented On: 19-Nov-2019 10:30 Appointment; DIONY TAYLOR APRN Encounter Diagnosis: Problem not documented On: 10-Jan-2020 8:30
--- OUTSIDE RECORDS SUMMARY | 2020-05-15 18:55 | XMS REPORT | Summary of Care ---
Author Author NEREYDA Garcia, TAMIKA ONEILL Organization Unknown Address Unknown Phone Unavailable Care Team Providers Care Aircraft Body Repairer Name Role Phone LESLIE FISHER APRN Unavailable Unavailable NEREYDA Garcia, PITO Unavailable Unavailable NEREYDA VILLAGOMEZ [place], PITO HERNANDEZ Unavailable Unavailable FRANCES ECD, MERLYN Verdugo Unavailable Unavailable REINA ECD, KURT Unavailable Unavailable NATALIA ECD-C, LESLIE D Unavailable Unavailable ALMA NGUYEN UT, [...] for Tdap vaccination (V06.1, Z23) Status: Active Cervical cancer screening (V76.2, Z12.4) [...] diabetes mellitus (250. 00, E11.9) Status: Active Standardized adult depression screening tool [...] DAWN M.D. * Start : 17-Oct-2017 Active Allergies and Adverse Reactions Name Dates [...] 0.5 ML Intramuscula r Suspension Lot #: [id number] on: 03-Jun-2015 Fluzone Quadrivalent 0.5 ML Intramuscula r Suspension Lot #: [id number] on: 10-Jun-2016 Fluzone Quadrivalent 0.5 ML Intramuscula r Suspension Lot #: [id number] on: 17-Oct-2017 Hepatitis A, adult Lot #: [...] smoker Vital Signs Date Test Result Details :32 BP Systolic 120 mm[Hg] Status: Comments: [...] Details Planned Observations Planned Goals not documented Interventions Provided Labs/Procedures/Imaging* Tobacco Use Screening; Done: 19 Nov 2019 * Tobacco Use Screening; Done: 19 Nov 2019 Plan* Type 2 diabetes mellitus: * - * PHQ-9 total score of 6 with PHQ- 2 of 2: * - Bupropion XL 150 mg, 2 tabs daily * Overweight with BMI of 29.87: Diet [...]
--- OUTSIDE RECORDS SUMMARY | 2020-05-15 18:55 | XMS REPORT | Summary of Care ---
Author Author TAMIKA Mata Organization Unknown Address Unknown Phone Unavailable Care Team Providers Care Roentgenologist Name Role Phone LESLIE FISHER APRN Unavailable Unavailable NEREYDA Garcia, PITO Unavailable Unavailable NEREYDA VILLAGOMEZ UT, PITO HERNANDEZ Unavailable Unavailable FRANCES GEOLOGY FACULTY MEMBER, MERLYN Verdugo Unavailable Unavailable REINA GEOLOGY FACULTY MEMBER, KURT Unavailable Unavailable NATALIA GEOLOGY FACULTY MEMBER-C, LESLIE D Unavailable Unavailable ALMA NGUYEN UT, [...] 0.5 ML Intramuscula r Suspension Lot #: [id number] on: 03-Jun-2015 Fluzone Quadrivalent 0.5 ML Intramuscula r Suspension Lot #: [id number] on: 10-Jun-2016 Fluzone Quadrivalent 0.5 ML Intramuscula r Suspension Lot #: [id number] on: 17-Oct-2017 Hepatitis A, adult Lot #: [...]
--- OUTSIDE RECORDS SUMMARY | 2020-05-15 18:55 | XMS REPORT | Summary of Care ---
Author Author TAMIKA López M.A. Organization Unknown Address [facility] Phone Unavailable Care Team Providers Care Director Agency & Strategic Partnerships Name Role Phone NATALIA MCCOY, LESLIE Unavailable Unavailable NEREYDA Garcia, PITO Unavailable Unavailable CLAUDIA MCCOY, DIONY Unavailable Unavailable NEREYDA VILLAGOMEZ [place], PITO HERNANDEZ Unavailable Unavailable FRANCES GEOPHYSICAL MANAGER, MERLYN L Unavailable Unavailable REINA GEOPHYSICAL MANAGER, KURT Unavailable Unavailable NATALIA GEOPHYSICAL MANAGER-C, LESLIE Singh Unavailable Unavailable REMICK PATRICK [place], ANGEL LUIS W Unavailable Unavailable CLAUDIA BARRETT [...] in ad ult (V85.25, Z68.29) Status: Active Situational stress (V62.89, F43.9) Status: Active Ineffective coping (799.29, R45.89) Status: Active Medications Name Dates Details Atorvastatin [...] UNTIL WELL * Quantity: 1 Refills: 2 PITO DAWN M.D. * Start : 29-Oct-2019 Active 6.7 GM Inhaler Januvia 100 MG Oral Tablet TAKE 1 TABLET DAILY. * Quantity: 42 Refills: 0 NEREYDA Garcia PITO * Start : 19-Nov-2019 Active clonazePAM 0.25 MG Oral Tablet Disintegrating PLACE 1 TABLET ON TONGUE AND ALLOW TO DISSOLVE NEEDED FOR PANIC ATTACKS AND T O HELP SLEEP. * Quantity: 30 Refills: 0 DIONY TAYLOR APRN * Start : 10-Jan-2020 Active Allergies and Adverse Reactions Name Dates [...] 0.5 ML Intramuscula r Suspension Lot #: [id number] on: 03-Jun-2015 Fluzone Quadrivalent 0.5 ML Intramuscula r Suspension Lot #: [id number] on: 10-Jun-2016 Fluzone Quadrivalent 0.5 ML Intramuscula r Suspension Lot #: [id number] on: 17-Oct-2017 Hepatitis A, adult Lot #: [...] (finding) Vital Signs Date Test Result Details 10-Jan-20208:35 Systolic blood pressure 135 mm[Hg] Status: Comments : Location: LUE; Position: Sitting Diastolic blood pressure 82 mm[Hg] Status: Comment s: Location: LUE; Position: Sitting Body height 61 in Status: Weight 155.375 lb Status: Body mass index (BMI) [Ratio] 29.36 kg/m2 Status: Body surface area Derived from formula 1.7 m2 S tatus: Body temperature 97.7 f Status: Comments: Me thod: Temporal Heart Rate 103 /min Status: Respiratory rate 16 /min Status: Physical Findings 0 Status: Comments: Pa in Scale Physical Findings 0 Status: Comments: Al cohol Screen - How many times in the past yr have you had 5 (for M) or 4 (for F) or 4 (for all > 65yrs) or more drinks in a day? Results Date Description Value Details Results not documented Plan of Care Name Dates Details Planned Observations Planned Goals not documented Interventions Provided Medication Changes* clonazePAM 0.25 MG Oral Tablet Disintegrating - Start Follow-ups/Referrals* Psychology Referral; To Be Done: 10 Jan 2020 Instructions Name Dates Details Instructions not documented [...]
--- OUTSIDE RECORDS SUMMARY | 2020-05-15 18:55 | XMS REPORT | Summary of Care ---
Author Author Kody Wilson, TAMIKA ONEILL Organization Unknown Address Unknown Phone Unavailable Care Team Providers Care Feeder Tender Name Role Phone NATALIA MCCOY, LESLIE Unavailable Unavailable NEREYDA Garcia, PITO Unavailable Unavailable CLAUDIA MCCOY, DIONY Unavailable Unavailable NEREYDA VILLAGOMEZ UT, PITO HERNANDEZ Unavailable Unavailable FRANCES EXTENSION COURSE COUNSELOR, MERLYN L Unavailable Unavailable REINA EXTENSION COURSE COUNSELOR, KURT Unavailable Unavailable NATALIA EXTENSION COURSE COUNSELOR-C, LESLIE D Unavailable Unavailable ALMA NGUYEN UT, ANGEL LUIS W Unavailable Unavailable CLAUDIA BARRETT FNPBC RNBC CPN, DIONY Unavailable Unav tayler GONSALES MD, NEEL Unavailable Unavailable Unavailable Unavailable Functional Status [...] DAILY. * Quantity: 42 Refills: 0 NEREYDA Garcia, PITO * Start : 19-Nov-2019 Active Allergies and [...] 0.5 ML Intramuscula r Suspension Lot #: [id number] on: 03-Jun-2015 Fluzone Quadrivalent 0.5 ML Intramuscula r Suspension Lot #: [id number] on: 10-Jun-2016 Fluzone Quadrivalent 0.5 ML Intramuscula r Suspension Lot #: [id number] on: 17-Oct-2017 Hepatitis A, adult Lot #: [...]
--- OUTSIDE RECORDS SUMMARY | 2020-05-15 18:55 | XMS REPORT | Summary of Care ---
Author Author NEREYDA Garcia, TAMIKA ONEILL Organization Unknown Address Unknown Phone Unavailable Care Team Providers Care Wood Crew Supervisor Name Role Phone LESLIE FISHER APRN Unavailable Unavailable NEREYDA Garcia, PITO Unavailable Unavailable NEREYDA VILLAGOMEZ UT, PITO HERNANDEZ Unavailable Unavailable FRANCES BOAT PULLER, MERLYN Verdugo Unavailable Unavailable REINA BOAT PULLER, KURT Unavailable Unavailable NATALIA BOAT PULLER-C, LESLIE Singh Unavailable Unavailable NEEL GONSALES MD Unavailable Unavailable ALMA NGUYEN UT, ANGEL LUIS [...] DAILY PRN * Quantity: 90 Refills: 1 SANTHOSH DAWN M.D.NDA * Start : 17-Oct-2017 Active Albuterol Sulfate [...] 0.5 ML Intramuscula r Suspension Lot #: [id number] on: 03-Jun-2015 Fluzone Quadrivalent 0.5 ML Intramuscula r Suspension Lot #: [id number] on: 10-Jun-2016 Fluzone Quadrivalent 0.5 ML Intramuscula r Suspension Lot #: [id number] on: 17-Oct-2017 Hepatitis A, adult Lot #: [...] smoker Vital Signs Date Test Result Details :52 BP Systolic 136 mm[Hg] Status: Comments: [...] Respiration Rate 16 /min Status: Comments: Qu arturoty: Normal Results Date Description Value Details 19-Ljv-66058:12 [O] Flu Test (in Office ) Flu A N (Normal) Flu B N (Normal) Plan of Care Name Dates Details Planned Observations Planned Goals not documented Planned Encounters Appointment; PITO DAWN M.D. On: 19-Nov-2019 10:30 Interventions Provided Plan* Continue current medications as follows unless otherwise dictated by results of above ordered lab. * Follow up in otherwise, follow up [...]
--- OUTSIDE RECORDS SUMMARY | 2020-05-15 18:55 | XMS REPORT | Summary of Care ---
Author Author CLAUDIA MCCOY, TAMIKA ONEILL Organization Unknown Address Unknown Phone Unavailable Care Team Providers Care Kiln Worker Name Role Phone LESLIE FISHER APRN Unavailable Unavailable NEREYDA Garcia, PITO Unavailable Unavailable CLAUDIA MCCOY, DIONY Unavailable Unavailable NEREYDA VILLAGOMEZ UT, PITO HERNANDEZ Unavailable Unavailable FRANCES CORSET FITTER, MERLYN Verdugo Unavailable Unavailable REINA CORSET FITTER, KURT Unavailable Unavailable NATALIA CORSET FITTER-C, LESLIE Singh Unavailable Unavailable ALMA NGUYEN UT, ANGEL LUIS W Unavailable Unavailable CLAUDIA BARRETT FNC RNBC CPN, DIONY Unavailable Unagail GONSALES MD, NEEL Unavailable Unavailable Unavailable Unavailable [...] 0.5 ML Intramuscula r Suspension Lot #: [id number] on: 03-Jun-2015 Fluzone Quadrivalent 0.5 ML Intramuscula r Suspension Lot #: [id number] on: 10-Jun-2016 Fluzone Quadrivalent 0.5 ML Intramuscula r Suspension Lot #: [id number] on: 17-Oct-2017 Hepatitis A, adult Lot #: [...]
--- OUTSIDE RECORDS SUMMARY | 2020-05-15 18:55 | XMS REPORT | Summary of Care ---
Author Author NEREYDA Garcia, TAMIKA ONEILL Organization Unknown Address Unknown Phone Unavailable Care Team Providers Care Tape Maker Name Role Phone LESLIE FISHER APRN Unavailable Unavailable NEREYDA Garcia, PITO Unavailable Unavailable NEREYDA VILLAGOMEZ [place], PITO HERNANDEZ Unavailable Unavailable FRANCES AIR CREW OFFICER, MERLYN Verdugo Unavailable Unavailable REINA AIR CREW OFFICER, KURT Unavailable Unavailable NATALIA AIR CREW OFFICER-C, LESLIE D Unavailable Unavailable ALMA NGUYEN UT, [...] 0.5 ML Intramuscula r Suspension Lot #: [id number] on: 03-Jun-2015 Fluzone Quadrivalent 0.5 ML Intramuscula r Suspension Lot #: [id number] on: 10-Jun-2016 Fluzone Quadrivalent 0.5 ML Intramuscula r Suspension Lot #: [id number] on: 17-Oct-2017 Hepatitis A, adult Lot #: [...] not documented Planned Encounters Neuropsychology Evaluation at [facility] Referr al Interventions Provided Medication Changes* Albuterol [...] daily * - Lab: Hemoglobin A1c * Memory complaints, Cognitive impairment: * - Mini-mental status: 4/5 with perfect clock and 2/3 word recall * - Referral: Neuropsychology evaluation * - Labs: Methylmalonic acid, TSH w/reflex to FT4, Vitamin B12, * PHQ-9 total score of 6 with PHQ- 2 of 2: * - Continue Bupropion XL 150 mg, 2 tabs daily * Labs ordered for monitoring HLD: Lipid panel and CMP w/eGFR * Need for Tdap vaccine: Tdap vaccine administered in office today. * Overweight with BMI of 29.87: Diet and exercise counseling * Will schedule follow up appointment after neuropsychology evaluation is scheduled. Instructions Name Dates Details Instructions not documented [...]
--- OUTSIDE RECORDS SUMMARY | 2020-05-15 18:55 | XMS REPORT | Summary of Care ---
Author Author OTONIEL PHD, TAMIKA ONEILL Organization Unknown Address Unknown Phone Unavailable Care Team Providers Care Hunter Skin Diver Name Role Phone NATALIA MCCOY, LESLIE Unavailable Unavailable NEREYDA Garcia, PITO Unavailable Unavailable OTONIEL PHD, OZZY Unavailable Unavailable NEREYDA VILLAGOMEZ [place], PITO HERNANDEZ Unavailable Unavailable FRANCES BARKER OPERATOR, MERLYN Verdugo Unavailable Unavailable REINA BARKER OPERATOR, KURT Unavailable Unavailable NATALIA BARKER OPERATOR-C, LESLIE D Unavailable Unavailable ALMA NGUYEN UT, [...] WELL * Quantity: 1 Refills: 2 NEREYDA Smith.Jean Claude, PITO * Start : 29-Oct-2019 Active 6.7 GM Inhaler Januvia 100 MG Oral Tablet TAKE 1 TABLET DAILY. * Quantity: 42 Refills: 0 NEREYDA Smith.D., PITO * Start : 19-Nov-2019 Active Allergies [...] 0.5 ML Intramuscula r Suspension Lot #: [id number] on: 03-Jun-2015 Fluzone Quadrivalent 0.5 ML Intramuscula r Suspension Lot #: [id number] on: 10-Jun-2016 Fluzone Quadrivalent 0.5 ML Intramuscula r Suspension Lot #: [id number] on: 17-Oct-2017 Hepatitis A, adult Lot #: [...] Screening Physical Findings 0 Status: Comments: Al ailxol Screen - How many times in the [...] not documented Planned Encounters Neuropsychology Evaluation at [facility] Referr al Instructions Name Dates Details Instructions not documented [...]
--- OUTSIDE RECORDS SUMMARY | 2020-05-15 18:55 | XMS REPORT | Summary of Care ---
Author Author [facility] Address [address] [place] [address] Phone Unavailable Care Team Providers Care Weld Inspector Name Role Phone LESLIE FISHER APRN Unavailable Unavailable NEREYDA Garcia, PITO Unavailable Unavailable NEREYDA VILLAGOMEZ CT, PITO HERNANDEZ Unavailable Unavailable FRANCES FOREST TECHNICIAN, MERLYN Verdugo Unavailable Unavailable REINA FOREST TECHNICIAN, KURT Unavailable Unavailable NATALIA FOREST TECHNICIAN-C, LESLIE Singh Unavailable Unavailable ALMA NGUYEN [place], ANGEL LUIS W Unavailable Unavailable CLAUDIA BARRETT [...] 0.5 ML Intramuscula r Suspension Lot #: [id number] on: 03-Jun-2015 Fluzone Quadrivalent 0.5 ML Intramuscula r Suspension Lot #: [id number] on: 10-Jun-2016 Fluzone Quadrivalent 0.5 ML Intramuscula r Suspension Lot #: [id number] on: 17-Oct-2017 Hepatitis A, adult Lot #: [...] Planned Goals not documented Planned Encounters Appointment; DIONY TAYLOR APRN On: 10-Jan-2020 8:30 Instructions Name Dates Details Instructions not documented [...]
--- OUTSIDE RECORDS SUMMARY | 2020-05-15 18:55 | XMS REPORT | Summary of Care ---
Author Author [facility] Address [address] [place] [address] Phone Unavailable Care Team Providers Care Director Of Category Management Name Role Phone LESLIE FISHER APRN Unavailable Unavailable NEREYDA Garcia, PITO Unavailable Unavailable NEREYDA VILLAGOMEZ [place], PITO HERNANDEZ Unavailable Unavailable FRANCES ALLERGY AND IMMUNOLOGY SPECIALIST, MERLYN Verdugo Unavailable Unavailable REINA ALLERGY AND IMMUNOLOGY SPECIALIST, KURT Unavailable Unavailable NATALIA ALLERGY AND IMMUNOLOGY SPECIALIST-C, LESLIE Singh Unavailable Unavailable ALMA NGUYEN [place], ANGEL LUIS W Unavailable Unavailable CLAUDIA BARRETT [...] cancer s creening (V76.2, Z12.4) Status: Active Colon cancer screening (V76.51, Z12.11) Status: Active Constipation (564.00, K59.00) Status: Active 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, 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 Dysgeusia (781.1, R43.2) Status: Active 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, 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, 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 Prediabetes (790.29, R73.03) Status: Active Chronic insomnia (780.52, F51.04) Status: Active Abnormal CBC (790.6, R79.89) Status: Active On statin therapy (V58.69, Z79.899) Status: Active Cervical cancer screening (V76.2, Z12.4) Status: Active Well woman exam with routine gynecologic al exam (V72.31, Z01.419) Status: Active Screening for human papillomavirus (HPV) (V73.81, Z11.51) Status: Active Breast cancer screening (V76.10, Z12.39) Status: Active Cholelithiases (574.20, K80.20) Status: Active Hepatic steatosis (571.8, K76.0) Status: Active Glycosuria (791.5, R81) Status: Active Cough variant asthma (493.82, J45.991) Status: Active Mild persistent reactive airway disease [...] in ad ult (V85.25, Z68.29) Status: Active Acute bronchitis due to other specified organisms (466.0, J20.8) Status: Active Essential (primary) hypertension (401.9, I10) Status: Active Breast lump on right side at 11 o'clock position (611.72, N63.11) Status: Active H. pylori infection (041.86, A04.8) Status: Active Dysphagia (787.20, R13.10) Status: Active GERD (gastroesophageal reflux disease) ( 530.81, K21.9) Status: Active Need for influenza vaccination (V04.81, Z23) Status: Active Need for hepatitis A vaccination (V05.3, Z23) Status: Active Insomnia (780.52, G47.00) Status: Active Mood disorder (296.90, F39) Status: Active Headache, chronic daily (784.0, R51) Status: Active Status post gastric banding surgery (V45 .86, Z98.84) Status: Active Hearing loss, sudden, left (388.2, H91.2 2) Status: Active Major depression, chronic (296.20, F32.9 ) Status: Active Controlled depression (311, F32.9) Status: Active Encounter for gynecological examination (V72.31, Z01.419) Status: Active Acute urinary tract infection (599.0, N3 9.0) Status: Active Screening for hypothyroidism (V77.0, Z13 .29) Status: Active Encounter for vitamin deficiency screeni ng (V77.99, Z13.21) Status: Active Menopausal symptoms (627.2, N95.1) Status: Active Medications Name Dates Details Atorvastatin [...] 0.5 ML Intramuscula r Suspension Lot #: [id number] on: 03-Jun-2015 Fluzone Quadrivalent 0.5 ML Intramuscula r Suspension Lot #: [id number] on: 10-Jun-2016 Fluzone Quadrivalent 0.5 ML Intramuscula r Suspension Lot #: [id number] on: 17-Oct-2017 Hepatitis A, adult Lot #: [...]
--- OUTSIDE RECORDS SUMMARY | 2020-05-15 18:55 | XMS REPORT | Summary of Care ---
Author Author [facility] Address [address] [place] [address] Phone Unavailable Care Team Providers Care Triage Nurse Name Role Phone LESLIE FISHER APRN Unavailable Unavailable NEREYDA Garcia, PITO Unavailable Unavailable NEREYDA VILLAGOMEZ [place], PITO HERNANDEZ Unavailable Unavailable FRANCES SHEEP FARM WORKER, MERLYN Verdugo Unavailable Unavailable REINA SHEEP FARM WORKER, KURT Unavailable Unavailable NATALIA SHEEP FARM WORKER-C, LESLIE Singh Unavailable Unavailable ALMA NGUYEN [place], ANGEL LUIS [place] Unavailable Unavailable NEEL GONSALES MD Unavailable Unavailable Unavailable Unavailable Functional Status Name [...] other specified organisms (462, J02.8) Status: Active Class 1 obesity due to excess calories w ithout serious comorbidity with body mass index (BMI) of 31.0 to 31.9 in adult (278.00, E66.09) Status: Active New onset type 2 diabetes mellitus (250. 00, E11.9) Status: Active Medications Name Dates Details Atorvastatin [...] 0.5 ML Intramuscula r Suspension Lot #: [id number] on: 03-Jun-2015 Fluzone Quadrivalent 0.5 ML Intramuscula r Suspension Lot #: [id number] on: 10-Jun-2016 Fluzone Quadrivalent 0.5 ML Intramuscula r Suspension Lot #: [id number] on: 17-Oct-2017 Hepatitis A, adult Lot #: [...] smoker Vital Signs Date Test Result Details :27 BP Systolic 143 mm[Hg] Status: Comments: Lo cation: LUE; Position: Sitting BP Diastolic 77 mm[Hg] Status: Comments: Lo cation: LUE; Position: Sitting Height 61 in Status: Weight 158.1 lb [...] Respiration Rate 16 /min Status: Comments: Qu miguelangel: Normal Results Date Description Value Details 85-Pjf-53334:12 [O] Flu Test (in Office ) Flu [...]
--- OUTSIDE RECORDS SUMMARY | 2020-05-15 18:55 | XMS REPORT | Summary of Care ---
Author Author TAMIKA Goldsmith Organization Unknown Address Unknown Phone Unavailable Care Team Providers Care Website/Blog Editor Name Role Phone NATALIA N.P., LESLIE Unavailable Unavailable NEREYDA Garcia, PITO Unavailable Unavailable NEREYDA VILLAGOMEZ [place], PITO HERNANDEZ Unavailable Unavailable FRANCES WHIPPED TOPPING FINISHER, MERLYN Verdugo Unavailable Unavailable REINA WHIPPED TOPPING FINISHER, KURT Unavailable Unavailable NATALIA WHIPPED TOPPING FINISHER-C, LESLIE D Unavailable Unavailable NEEL GONSALES MD Unavailable Unavailable [...] DAYS * Quantity: 20 Refills: 0 NEREYDA Smith.Jean Claude, PITO * Start : 29-Oct-2019 Active Allergies [...] 0.5 ML Intramuscula r Suspension Lot #: [id number] on: 03-Jun-2015 Fluzone Quadrivalent 0.5 ML Intramuscula r Suspension Lot #: [id number] on: 10-Jun-2016 Fluzone Quadrivalent 0.5 ML Intramuscula r Suspension Lot #: [id number] on: 17-Oct-2017 Hepatitis A, adult Lot #: [...] smoker Vital Signs Date Test Result Details 25-Mcf-73295:52 BP Systolic 136 mm[Hg] Status: Comments: Lo [...] ality: Normal Results Date Description Value Details 85-Kqk-11493:12 [O] Flu Test (in Office ) Flu [...] Problem not documented On: 06-Mar-2018 9:00 Appointment; PIOT DAWN M.D. Encounter Diagnosis: Problem not documented [...]
--- OUTSIDE RECORDS SUMMARY | 2020-05-15 18:56 | XMS REPORT | Summary of Care ---
Author Author TAMIKA FISHER APRN Organization Unknown Address Unknown Phone Unavailable Care Team Providers Care Guard Chief Name Role Phone NATALIA MCCOY LESLIE Unavailable Unavailable NEREYDA Garcia, PITO Unavailable Unavailable CLAUDIA MCCOY, DIONY Unavailable Unavailable NEREYDA VILLAGOMEZ UT, PITO HERNANDEZ Unavailable Unavailable FRANCES BUTCHER MEAT, MERLYN Verdugo Unavailable Unavailable REINA BUTCHER MEAT, KURT Unavailable Unavailable NATALIA BUTCHER MEAT-C, LESLIE Singh Unavailable Unavailable ALMA NGUYEN UT, [...] for influenza vaccination (V04.81, Z23) Status: Active On statin therapy (V58.69, Z79.899) [...] Active Cognitive impairment (294.9, R41.89) Status: Active Encounter for monitoring statin therapy (V58.83, Z51.81) Status: Active Need for Tdap vaccination (V06.1, Z23) Status: Active Standardized adult depression screening tool completed (Z13.31) Status: Active Situational stress (V62.89, F43.9) Status: Active Ineffective coping (799.29, R45.89) Status: Active Body mass index (BMI) of 29.0-29.9 in ad ult (V85.25, Z68.29) Status: Active Abnormal mini-mental status exam (780.97 , F99) Status: Active Overweight with body mass index (BMI) of 29 to 29.9 in adult (278.02, E66.3) Status: Active Mixed hyperlipidemia (272.2, E78.2) Status: Active Subjective memory complaints (780.93, R4 1.89) Status: Active At low risk for fall (V49.89, Z91.81) Status: Active Status post gastric banding surgery (V45 .86, Z98.84) Status: Active COVID-19 virus infection (079.89, U07.1) Status: Active Medications Name Dates Details Atorvastatin [...] MOUTH DAILY * Quantity: 180 Refills: 1 DIONY TAYLOR APRN * Start : 01-Jul-2016 Active Pantoprazole Sodium 40 MG Oral Tablet Delayed Release TAKE 1 TABLET BY MOUTH DAILY PRN * Quantity: 90 Refills: 1 NEREYDA GarciaSANTHOSHPITO * Start : 17-Oct-2017 Active Albuterol Sulfate HFA 108 (90 Base) MCG/ACT Inhalation Aerosol Solution 2 INHALATIONS FOUR TIMES A DAY UNTIL WELL * Quantity: 1 Refills: 2 NEREYDA Garcia, PITO * Start : 29-Oct-2019 Active 6.7 GM Inhaler Januvia 100 MG Oral Tablet TAKE 1 TABLET DAILY. * Quantity: 30 Refills: 2 PITO DAWN M.D. * Start : 19-Nov-2019 Active clonazePAM 0.25 MG Oral Tablet Disintegrating PLACE 1 TABLET ON TONGUE AND ALLOW TO DISSOLVE NEEDED FOR PANIC ATTACKS AND T O HELP SLEEP. * Quantity: 30 Refills: 0 DIONY TAYLOR APRN * Start : 10-Jan-2020 Active Promethazine-DM 6.25-15 MG/5ML Oral Syrup TAKE 5 ML EVERY 4 TO 6 HOURS NEEDED FOR COUGH. * Quantity: 240 Refills: 1 LESLIE FISHER APRN * Start : 29-Apr-2020 Active Xopenex HFA 45 MCG/ACT Inhalation Aerosol INHALE 2 PUFFS Every 6 hours PRN Shortness of breath * Quantity: 1 Refills: 1 LESLIE FISHER APRN * Start : 29-Apr-2020 Active 15 GM Inhaler Allergies and Adverse Reactions Name [...] 0.5 ML Intramuscula r Suspension Lot #: [id number] on: 03-Jun-2015 Fluzone Quadrivalent 0.5 ML Intramuscula r Suspension Lot #: [id number] on: 10-Jun-2016 Fluzone Quadrivalent 0.5 ML Intramuscula r Suspension Lot #: [id number] on: 17-Oct-2017 Hepatitis A, adult Lot #: [...] Goals not documented Interventions Provided Medication Changes* Promethazine-DM 6.25-15 MG/5ML Oral Syrup - Start * Xopenex HFA 45 MCG/ACT Inhalation Aerosol - Start Instructions Name Dates Details Instructions not documented [...]
--- OUTSIDE RECORDS SUMMARY | 2020-05-15 18:56 | XMS REPORT | Summary of Care ---
Author Author Trung Case, TAMIKA ONEILL Organization Unknown Address Unknown Phone Unavailable Care Team Providers Care Lead C Developer Name Role Phone NATALIA MCCOY, LESLIE Unavailable Unavailable NEREYDA Garcia, PITO Unavailable Unavailable Trung Case, Merry Unavailable Unavailable CLAUDIA MCCOY, DIONY Unavailable Unavailable NEREYDA VILLAGOMEZ UT, PITO DAVID Unavailable Unavailable DANIELS LEGAL ASSOCIATE, MERLYN L Unavailable Unavailable REINA LEGAL ASSOCIATE, KURT Unavailable Unavailable NATALIA LEGAL ASSOCIATE-C, LESLIE D Unavailable Unavailable REMICK PATRICK UT, ANGEL LUIS W Unavailable Unavailable CLAUDIA BARRETT FNC RNBC CPN, DIONY Unavailable Unav tayler GONSALES [...] banding surgery (V45 .86, Z98.84) Status: Active Medications Name Dates Details Atorvastatin [...] MOUTH DAILY * Quantity: 180 Refills: 1 DOINY TAYLOR APRN * Start : 01-Jul-2016 Active [...] HELP SLEEP. * Quantity: 30 Refills: 0 CLAUDIA SKIN LAP BONDER, DIONY * Start : 10-Jan-2020 Active Allergies and [...] 0.5 ML Intramuscula r Suspension Lot #: [id number] on: 03-Jun-2015 Fluzone Quadrivalent 0.5 ML Intramuscula r Suspension Lot #: [id number] on: 10-Jun-2016 Fluzone Quadrivalent 0.5 ML Intramuscula r Suspension Lot #: [id number] on: 17-Oct-2017 Hepatitis A, adult Lot #: [...] Observations Planned Goals not documented Interventions Provided Discussion/Summary* Guideline Used: * Other: Call back from clinic staff * Recommended Disposition: ER precautions given and task sent to [facility] Instructions Name Dates Details Instructions not documented [...]
--- OUTSIDE RECORDS SUMMARY | 2020-05-15 18:56 | XMS REPORT | Summary of Care ---
Author TAMIKA Wilson Organization Unknown Address [facility] Phone Unavailable Care Team Providers Care Returned Goods Receiving Clerk Name Role Phone NATALIA MCCOY, LESLIE Unavailable Unavailable NEREYDA Garcia, PITO Unavailable Unavailable Lexy Weller Unavailable Unavailable CLAUDIA MCCOY, DIONY Unavailable Unavailable NEREYDA VILLAGOMEZ [place], PITO HERNANDEZ Unavailable Unavailable FRANCES THEOLOGY TEACHER, MERLYN L Unavailable Unavailable REINA THEOLOGY TEACHER, KURT Unavailable Unavailable NATALIA THEOLOGY TEACHER-C, LESLIE Singh Unavailable Unavailable REMICK PATRICK [place], [...] Insomnia (780.52, G47.00) Status: Active Need for influenza vaccination (V04.81, Z23) Status: Active Need for hepatitis A vaccination (V05.3, Z23) Status: Active Status post gastric banding [...] gynecologic al exam (V72.31, Z01.419) Status: Active Breast cancer screening (V76.10, Z12.39) Status: Active Glycosuria (791.5, R81) Status: Active Screening for human papillomavirus (HPV) (V73.81, Z11.51) Status: Active Cholelithiases (574.20, K80.20) Status: Active Hepatic steatosis (571.8, K76.0) Status: Active Cough variant asthma (493.82, J45.991) Status: Active Acute bronchitis due to other specified organisms (466.0, J20.8) Status: Active Mild persistent reactive airway disease without complication (493.90, J45.30) Status: Active Acute pharyngitis due to other specified organisms (462, J02.8) Status: Active Cognitive impairment (294.9, R41.89) Status: Active New onset type 2 diabetes mellitus (250. 00, E11.9) Status: Active Subjective memory complaints (780.93, R4 1.89) Status: Active Encounter for mini-mental status examina tion Status: Active Other hyperlipidemia (272.4, E78.49) Status: Active Encounter for monitoring statin therapy (V58.83, Z51.81) Status: Active Body mass index (BMI) of 29.0-29.9 in ad ult (V85.25, Z68.29) Status: Active Need for Tdap vaccination (V06.1, Z23) Status: Active Overweight (BMI 25.0-29.9) Status: Active Standardized adult depression screening tool [...] Garcia, PITO * Start : 19-Nov-2019 Active clonazePAM 0.25 MG Oral Tablet Disintegrating PLACE 1 TABLET ON TONGUE AND ALLOW TO DISSOLVE NEEDED FOR PANIC ATTACKS AND T O HELP SLEEP. * Quantity: 30 Refills: 0 CLAUDIA WAGNERNDIONY * Start : 10-Jan-2020 Active Allergies and [...] 0.5 ML Intramuscula r Suspension Lot #: [id number] on: 03-Jun-2015 Fluzone Quadrivalent 0.5 ML Intramuscula r Suspension Lot #: [id number] on: 10-Jun-2016 Fluzone Quadrivalent 0.5 ML Intramuscula r Suspension Lot #: [id number] on: 17-Oct-2017 Hepatitis A, adult Lot #: [...] Planned Encounters Appointment; DIONY TAYLOR APRN On: 04-Feb-2020 8:00 Instructions Name Dates Details Instructions not documented [...]
--- OUTSIDE RECORDS SUMMARY | 2020-05-15 18:56 | XMS REPORT | Summary of Care ---
Author Author CLAUDIA MCCOY, TAMIKA ONEILL Organization Unknown Address Unknown Phone Unavailable Care Team Providers Care Electrician Supervisor Name Role Phone LESLIE FISHER APRN Unavailable Unavailable NEREYDA Garcia, PITO Unavailable Unavailable CLAUDIA MCCOY, DIONY Unavailable Unavailable NEREYDA VILLAGOMEZ [place], PITO HERNANDEZ Unavailable Unavailable FRANCES DREDGE MATE, MERLYN Verdugo Unavailable Unavailable REINA DREDGE MATE, KURT Unavailable Unavailable NATALIA DREDGE MATE-C, LESLIE Singh Unavailable Unavailable ALMA NGUYEN [place], [...] TABLET DAILY. * Quantity: 42 Refills: 0 GOODSOFÍA Smith.Jean Claude, PITO * Start : 19-Nov-2019 Active clonazePAM 0.25 MG Oral Tablet Disintegrating PLACE 1 TABLET ON TONGUE AND ALLOW TO DISSOLVE NEEDED FOR PANIC ATTACKS AND T O HELP SLEEP. * Quantity: 30 Refills: 0 CLAUDIAALIZA WAGNERNDIONY * Start : 10-Jan-2020 Active Allergies [...] 0.5 ML Intramuscula r Suspension Lot #: [id number] on: 03-Jun-2015 Fluzone Quadrivalent 0.5 ML Intramuscula r Suspension Lot #: [id number] on: 10-Jun-2016 Fluzone Quadrivalent 0.5 ML Intramuscula r Suspension Lot #: [id number] on: 17-Oct-2017 Hepatitis A, adult Lot #: [...] Goals not documented Interventions Provided Medication Changes* buPROPion HCl ER (XL) 150 MG Oral Tablet Extended Release 24 Hour - Renew Instructions Name Dates Details Instructions not documented [...]
--- OUTSIDE RECORDS SUMMARY | 2020-05-15 18:56 | XMS REPORT | Summary of Care ---
Author Author Augusto Wilson, TAMIKA ONEILL Organization Unknown Address Unknown Phone Unavailable Care Team Providers Care Windsmith Name Role Phone NATALIA MCCOY, LESLIE Unavailable Unavailable NEREYDA Garcia, PITO Unavailable Unavailable Augusto Wilson, Lorraine Unavailable Unavailable CLAUDIA MCCOY, DIONY Unavailable Unavailable NEREYDA VILLAGOMEZ [place], PITO HERNANDEZ Unavailable Unavailable FRANCES BATTERY PARTS ASSEMBLER, MERLYN L Unavailable Unavailable REINA BATTERY PARTS ASSEMBLER, KURT Unavailable Unavailable NATALIA BATTERY PARTS ASSEMBLER-C, LESLIE D Unavailable Unavailable ALMA NGUYEN [place], [...] WELL * Quantity: 1 Refills: 2 NEREYDA Smith.Francisco., PITO * Start : 29-Oct-2019 Active 6.7 GM Inhaler Januvia 100 MG Oral Tablet TAKE 1 TABLET DAILY. * Quantity: 42 Refills: 0 GOODINE M.D., PITO * Start : 19-Nov-2019 Active clonazePAM [...] 0.5 ML Intramuscula r Suspension Lot #: [id number] on: 03-Jun-2015 Fluzone Quadrivalent 0.5 ML Intramuscula r Suspension Lot #: [id number] on: 10-Jun-2016 Fluzone Quadrivalent 0.5 ML Intramuscula r Suspension Lot #: [id number] on: 17-Oct-2017 Hepatitis A, adult Lot #: [...] Planned Encounters Appointment; DIONY TAYLOR APRN On: 24-Jan-2020 8:30 Instructions Name Dates Details Instructions not [...]
--- OUTSIDE RECORDS SUMMARY | 2020-05-15 18:56 | XMS REPORT | Summary of Care ---
Author Author NEREYDA Garcia, TAMIKA ONEILL Organization Unknown Address Unknown Phone Unavailable Care Team Providers Care High School Coach Name Role Phone NATALIA MCCOY, LESLIE Unavailable Unavailable NEREDYA Garcia, PITO Unavailable Unavailable Thai Case, Kristine Unavailable Unavailable CLAUDIA MCCOY, DIONY Unavailable Unavailable NEREYDA VILLAGOMEZ [place], PITO HERNANDEZ Unavailable Unavailable DANIELS IN HOME SALES CONSULTANT, MERLYN L Unavailable Unavailable REINA IN HOME SALES CONSULTANT, KURT Unavailable Unavailable NATALIA IN HOME SALES CONSULTANT-C, LESLIE D Unavailable Unavailable ALMA NGUYEN [place], ANGEL LUIS W Unavailable Unavailable CLAUDIA [facility]TT [facility] RNBC CPN, DIONY Unavailable Unav tayler GONSALES [...] SLEEP. * Quantity: 30 Refills: 0 CLAUDIA KITCHEN HELPER, DIONY * Start : 10-Jan-2020 Active Allergies [...] 0.5 ML Intramuscula r Suspension Lot #: [id number] on: 03-Jun-2015 Fluzone Quadrivalent 0.5 ML Intramuscula r Suspension Lot #: [id number] on: 10-Jun-2016 Fluzone Quadrivalent 0.5 ML Intramuscula r Suspension Lot #: [id number] on: 17-Oct-2017 Hepatitis A, adult Lot #: [...] Goals not documented Interventions Provided Medication Changes* Januvia 100 MG Oral Tablet - Renew Instructions Name Dates Details Instructions [...]
--- OUTSIDE RECORDS SUMMARY | 2020-05-15 18:56 | XMS REPORT | Summary of Care ---
Author Author NEREYDA Garcia, TAMIKA ONEILL Organization Unknown Address Unknown Phone Unavailable Care Team Providers Care Senior Systems Programmer Name Role Phone NATALIA MCCOY, LESLIE Unavailable Unavailable NEREYDA Garcia, PITO Unavailable Unavailable CLAUDIA MCCOY, DIONY Unavailable Unavailable NEREYDA VILLAGOMEZ [place], PITO HERNANDEZ Unavailable Unavailable FRANCES BARREL LAPPER, MERLYN L Unavailable Unavailable REINA BARREL LAPPER, KURT Unavailable Unavailable FISHER BARREL LAPPER-C, LESLIE D Unavailable Unavailable ALMA NGUYEN [place], [...] 29.9 in adult (278.02, E66.3) Status: Active Medications Name Dates Details Atorvastatin [...] UNTIL WELL * Quantity: 1 Refills: 2 GOODINE Sarah.Francisco., PITO * Start : 29-Oct-2019 Active 6.7 [...] 0.5 ML Intramuscula r Suspension Lot #: [id number] on: 03-Jun-2015 Fluzone Quadrivalent 0.5 ML Intramuscula r Suspension Lot #: [id number] on: 10-Jun-2016 Fluzone Quadrivalent 0.5 ML Intramuscula r Suspension Lot #: [id number] on: 17-Oct-2017 Hepatitis A, adult Lot #: [...] Appointment; DIONY TAYLOR APRN On: 04-Feb-2020 8:00 Interventions Provided Medication Changes* Albuterol Sulfate HFA 108 (90 Base) MCG/ACT Inhalation Aerosol Solution - Renew * Januvia 100 MG Oral Tablet - Start Labs/Procedures/Imaging* [Q] LIPID PANEL WITH REFLEX TO DIRECT LDL; To Be Done: 19 Nov 2019 * [QL] CMP W/EGFR; To Be Done: 19 Nov 2019 * [QL] HEMOGLOBIN A1c; To Be Done: 19 Nov 2019 * [QL] METHYLMALONIC ACID; To Be Done: 19 Nov 2019 * [QL] TSH, 3RD GENERATION W/REFLEX TO FT4; To Be Done: 19 Nov 2019 * [QL] VITAMIN B12; To Be Done: 19 Nov [...] not documented On: 11-Aug-2018 11:00 Appointment; MERLYN DNAIELS APRN Encounter Diagnosis: Problem not documented On: [...]
--- OUTSIDE RECORDS SUMMARY | 2020-05-15 18:56 | XMS REPORT | Summary of Care ---
Author Author TAMIKA Mata Organization Unknown Address Unknown Phone Unavailable Care Team Providers Care Commercial Loan Assistant Name Role Phone NATALIA MCCOY, LESLIE Unavailable Unavailable NEREYDA Garcia, PITO Unavailable Unavailable Radha Mata Unavailable Unavailable CLAUDIA MCCOY, DIONY Unavailable Unavailable NEREYDA VILLAGOMEZ [place], PITO HERNANDEZ Unavailable Unavailable FRANCES GLAZE MIXER, MERLYN L Unavailable Unavailable REINA GLAZE MIXER, KURT Unavailable Unavailable NATALIA GLAZE MIXER-C, LESLIE D Unavailable Unavailable REMICK PATRICK [place], ANGEL LUIS W Unavailable Unavailable CLAUD[facility] BARRETT [facility] RNBC CPN, DIOYN Unavailable Unav tayler GONSALES MD, NEEL Unavailable [...] PRN * Quantity: 90 Refills: 1 NEREYDA Garcia, PITO * Start : 17-Oct-2017 Active Albuterol Sulfate HFA 108 (90 Base) MCG/ACT Inhalation Aerosol Solution 2 INHALATIONS FOUR TIMES A DAY UNTIL WELL * Quantity: 1 Refills: 2 NEREYDA Garcia, PITO * Start : 29-Oct-2019 Active 6.7 GM Inhaler Januvia 100 MG Oral Tablet TAKE 1 TABLET DAILY. * Quantity: 30 Refills: 2 NEREYDA Garcia, PITO * Start : 19-Nov-2019 [...] 0.5 ML Intramuscula r Suspension Lot #: [id number] on: 03-Jun-2015 Fluzone Quadrivalent 0.5 ML Intramuscula r Suspension Lot #: [id number] on: 10-Jun-2016 Fluzone Quadrivalent 0.5 ML Intramuscula r Suspension Lot #: [id number] on: 17-Oct-2017 Hepatitis A, adult Lot #: [...]
--- OUTSIDE RECORDS SUMMARY | 2020-05-15 18:56 | XMS REPORT | Summary of Care ---
Author Author Thai Case, TAMIKA LEMOS TEZ Organization Unknown Address Unknown Phone Unavailable Care Team Providers Care Food And Beverage Controller Name Role Phone NATALIA MCCOY, LESLIE Unavailable Unavailable NEREYDA Garcia, PITO Unavailable Unavailable Thai Case, Kristine Unavailable Unavailable CLAUDIA MCCOY, DIONY Unavailable Unavailable NEREYDA VILLAGOMEZ [place], PITO HERNANDEZ Unavailable Unavailable FRANCES POWER SYSTEMS ENGINEER, MERLYN L Unavailable Unavailable REINA POWER SYSTEMS ENGINEER, KURT Unavailable Unavailable NATALIA POWER SYSTEMS ENGINEER-C, LESLIE D Unavailable Unavailable ALMA NGUYEN [place], [...] SLEEP. * Quantity: 30 Refills: 0 CLAUDIA COMMISSARY ASSISTANTDIONY * Start : 10-Jan-2020 Active Allergies and [...] 0.5 ML Intramuscula r Suspension Lot #: [id number] on: 03-Jun-2015 Fluzone Quadrivalent 0.5 ML Intramuscula r Suspension Lot #: [id number] on: 10-Jun-2016 Fluzone Quadrivalent 0.5 ML Intramuscula r Suspension Lot #: [id number] on: 17-Oct-2017 Hepatitis A, adult Lot #: [...]
--- OUTSIDE RECORDS SUMMARY | 2020-05-15 18:56 | XMS REPORT | Summary of Care ---
Author Author NEREYDA Garcia, TAMIKA ONEILL Organization Unknown Address Unknown Phone Unavailable Care Team Providers Care Senior Environmental Consultant Name Role Phone NATALIA MCCOY, LESLIE Unavailable Unavailable NEREYDA Garcia, PITO Unavailable Unavailable CLAUDIA MCCOY, DIONY Unavailable Unavailable NEREYDA VILLAGOMEZ [place], PITO HERNANDEZ Unavailable Unavailable FRANCES MANAGER TELECOM, MERLYN L Unavailable Unavailable REINA MANAGER TELECOM, KURT Unavailable Unavailable FISHER MANAGER TELECOM-C, LESLIE D Unavailable Unavailable ALMA NGUYEN [place], [...] 0.5 ML Intramuscula r Suspension Lot #: [id number] on: 03-Jun-2015 Fluzone Quadrivalent 0.5 ML Intramuscula r Suspension Lot #: [id number] on: 10-Jun-2016 Fluzone Quadrivalent 0.5 ML Intramuscula r Suspension Lot #: [id number] on: 17-Oct-2017 Hepatitis A, adult Lot #: [...] 2019 Plan* Type 2 diabetes mellitus: * -Remain off metformin for now due to adverse side effects * - START Januvia 100 mg daily each a.m. * - Lab: Hemoglobin A1c. * - Continue current weight loss efforts. * Memory complaints, Cognitive impairment: * - Mini-mental status: 4/5 with perfect clock and 2/3 word recall * - Referral: Neuropsychology for neuropsychological testing to rule out early dementia. * - Labs: Serum methylmalonic acid, TSH w/reflex to FT4, Vitamin B12, to rule out vitamin B12 deficiency and hypothyroidism * PHQ-9 total score of 6 with PHQ- 2 of 2: * - Continue Bupropion XL 150 mg, 2 tabs daily * Labs ordered for monitoring HLD: Lipid panel and CMP w/eGFR * Need for Tdap vaccine: Tdap vaccine administered in office today. * Overweight with BMI of 29.87: Diet and exercise counseling * Schedule follow up appointment following completion of neuropsychology evaluation. Instructions Name Dates Details Instructions not documented [...]
--- NOTE | 2020-05-15 19:06 | Diagnostic Imaging Report ---
EXAMINATION: Head CT HISTORY: Altered mental status, findings that COMPARISON: None available TECHNIQUE: Helical axial images of the head were obtained. Reformatted coronal and sagittal images from the axial data. Dose modulation, iterative reconstruction, and/or weight based adjustment of the mA/kV was utilized to reduce the radiation dose to as low as reasonably achievable. Image quality: Motion/streaking artifact limits the evaluation of the skull base and posterior cranial fossa. FINDINGS: Parenchyma: 1. Few scatter mostly subcortical white matter hypodensities, most likely nonspecific chronic microvascular ischemic changes versus migraine related in the appropriate clinical setting, correlation with past medical history is advised. 2. No mass or hemorrhage. No CT evidence of acute territorial vascular insult. Extra-axial spaces:No abnormal density. No extra-axial fluid collections Brain volume: Normal for age. Ventricles: No hydrocephalus or displacement. Arteries: No density suggestive of thrombus. Dural sinuses: No abnormal density. Foramen magnum: No mass, Chiari malformation, or basilar invagination. Sella: No obvious mass. Paranasal/mastoid sinuses: Imaged portions unremarkable. Skull/Scalp: No lytic or blastic lesions. No fractures. IMPRESSION: 1. No acute intracranial abnormalities, particularly no mass, hemorrhage or infarct. 2. Mild white matter chronic microvascular ischemic changes. Signed by: Dr. Britney Paredes M.D. on 05/15/2020 7:03 PM
[2020-05-15 20:01] LABS: BLOOD UREA NITROGEN 12 mg/dL (7-26); BUN/CREATININE RATIO 17 (6-25); CALCIUM 9.2 mg/dL (8.4-10.2); CARBON DIOXIDE 22 mmol/L (22-29); CHLORIDE 109 mmol/L (98-107); CREATININE, SERUM 0.71 mg/dL (0.57-1.11); EST GLOMERULAR FILTRATION RATE > 60 ML/MIN (60-); GLUCOSE 89 mg/dL (74-118); SODIUM 143 mmol/L (136-145)
[2020-05-15 20:54] VITALS: BP 118/78
[2020-05-15] MEDS ORDERED: HYDROXYZINE HCL 25 MG TAB PO ONE (21:00)
== END 2020-05-15 21:02 | disposition home or self-care (01) ==
LOC: ER 17:35
DX: F41.0 Panic disorder [episodic paroxysmal anxiety] (principal); I10 Essential (primary) hypertension; E11.9 Type 2 diabetes mellitus without complications; E78.5 Hyperlipidemia, unspecified; F32.9 Major depressive disorder, single episode, unspecified; Z98.84 Bariatric surgery status
CPT/HCPCS: 36415; 70450; 80048; 80053; 82550; 82553; 83690; 84484; 85025; 93005; 99284; J2060; J3410; J7030; J1630

== ENCOUNTER 2022-01-26 15:25 | Outpatient (RCR) | payer BC | END 2022-01-30 | LOC: PT 15:25 | PROVIDERS: ATTEND Orthopaedic Surgery | DX: M25.562 Pain in left knee (principal) ==

== ENCOUNTER 2022-02-24 15:59 | Outpatient (RCR) | payer BC | END 2022-03-02 | LOC: PT 15:59 | PROVIDERS: ATTEND Orthopaedic Surgery | DX: M25.562 Pain in left knee (principal) | CPT/HCPCS: 97110 ×8; 97116; 97139; 97140; G0283 ×2 ==

== ENCOUNTER 2025-01-03 15:15 | Inpatient (IN) | payer BC ==
[~2025-01-03] VITALS: Ht 154.9 cm; Wt 62.1 kg
[2025-01-03 15:28] VITALS: TEMP 97.4
[2025-01-03] MEDS ORDERED: OZEMPIC1 MG/0.71 (15:53)
[2025-01-03] MEDS ORDERED: WELLBUTRIN XL150 MG PO (15:53)
[2025-01-03] MEDS ORDERED: ATORVASTATIN CA20 MG PO (15:53)
[2025-01-03 15:56] LABS: BASOPHILS % 0.7 % (0.0-1.0); EOSINOPHILS % 0.7 % (0.0-6.0); HEMATOCRIT 38.3 % (34.2-44.1); LYMPHOCYTES # (AUTO) 1.5 (1.0-3.2); LYMPHOCYTES % 23.7 % (18.0-39.1); MEAN CORPUSCULAR HEMOGLOBIN 31.2 pg (28-32); MEAN CORPUSCULAR HGB CONC 33.9 g/dL (31-35); MEAN CORPUSCULAR VOLUME 91.8 fL (81-99); MONOCYTES # (AUTO) 0.7 (0.2-0.8); MONOCYTES % 10.6 % (4.4-11.3); NEUTROPHILS # (AUTO) 3.9 (2.1-6.9); NEUTROPHILS % 64.1 % (38.7-80.0); PLATELET COUNT 377 x10e3/uL (140-360); RED BLOOD COUNT 4.17 x10e6/uL (3.6-5.1); WHITE BLOOD COUNT 6.11 x10e3/uL (4.8-10.8)
[2025-01-03 16:22] LABS: ALBUMIN 3.8 g/dL (3.5-5.0); ALBUMIN/GLOBULIN RATIO 1.3 (0.8-2.0); ANION GAP 13.7 mmol/L (8-16); BILIRUBIN,TOTAL 0.8 mg/dL (0.2-1.2); CALCIUM 8.9 mg/dL (8.4-10.2); CREATININE, SERUM 0.81 mg/dL (0.57-1.11); POTASSIUM 3.7 mmol/L (3.5-5.1); TOTAL PROTEIN 6.8 g/dL (6.5-8.1)
[2025-01-03] MEDS ORDERED: SODIUM CHLORIDE 0.9% 100 ML ONE (16:49)
[2025-01-03] MEDS ORDERED: IOPAMIDOL 370 MG/ML 100 ML INFUS..BTL INJ ONE (16:49)
[2025-01-03] MEDS ORDERED: DEXTROSE 50% SYRINGE 50 ML IV PRN (18:30)
[2025-01-03] MEDS ORDERED: ONDANSETRON HCL INJ 2MG/ML 2ML 2 MG/ML VIAL IV PRN (18:30)
[2025-01-03] MEDS: DEXTROSE 5%/0.9% SOD CHL 1,000 ML IV ONE (18:33)
[2025-01-03 18:38] VITALS: RESP 16
[2025-01-03 21:11] VITALS: PULSE 77
[2025-01-03 21:25] VITALS: BP 142/92; PULSE 77; RESP 22; O2SAT 100
[2025-01-03 21:30] VITALS: BP 145/87; PULSE 79; RESP 20; O2SAT 99
[2025-01-04] VITALS (17 sets, daily range): BP systolic 102–151; BP diastolic 68–104; PULSE 68–99; RESP 14–26; TEMP 97.7–98.6; O2SAT 97–100
[2025-01-04] MEDS ORDERED: ACETAMINOPHEN 325 MG TAB PO PRN
[2025-01-04 06:47] LABS: BASOPHILS % 0.6 % (0.0-1.0); EOSINOPHILS # (AUTO) 0.1 (0.0-0.4); EOSINOPHILS % 2.2 % (0.0-6.0); HEMATOCRIT 40.8 % (34.2-44.1); HEMOGLOBIN 13.7 g/dL (12.0-16.0); LYMPHOCYTES % 39.8 % (18.0-39.1); MEAN CORPUSCULAR HEMOGLOBIN 31.1 pg (28-32); MEAN CORPUSCULAR HGB CONC 33.6 g/dL (31-35); MEAN CORPUSCULAR VOLUME 92.7 fL (81-99); MONOCYTES # (AUTO) 0.5 (0.2-0.8); NEUTROPHILS # (AUTO) 2.3 (2.1-6.9); NEUTROPHILS % 46.2 % (38.7-80.0); PLATELET COUNT 371 x10e3/uL (140-360); RED CELL DISTRIBUTION WIDTH 11.9 % (11.7-14.4)
[2025-01-04 07:33] LABS: ALBUMIN 3.8 g/dL (3.5-5.0); ALBUMIN/GLOBULIN RATIO 1.4 (0.8-2.0); ANION GAP 12.9 mmol/L (8-16); BILIRUBIN,TOTAL 0.9 mg/dL (0.2-1.2); CALCIUM 8.7 mg/dL (8.4-10.2); CREATININE, SERUM 0.7 mg/dL (0.57-1.11); POTASSIUM 3.9 mmol/L (3.5-5.1); TOTAL PROTEIN 6.6 g/dL (6.5-8.1)
[2025-01-04 07:53] LABS: THYROID STIMULATING HORMONE 1.233 uIU/mL (0.350-4.940)
[2025-01-04] MEDS: BUPROPION HCL 150 MG TABCR PO SCH (08:21)
[2025-01-04] MEDS: ATORVASTATIN 20 MG TAB PO SCH (21:31)
[2025-01-05] VITALS: BP 123/86; PULSE 77; RESP 17; TEMP 97.8; O2SAT 99
[2025-01-05 04:32] VITALS: BP 132/85; PULSE 80; RESP 19; TEMP 97.8; O2SAT 98
[2025-01-05 04:57] LABS: BASOPHILS # (AUTO) 0.1 (0.0-0.1); BASOPHILS % 0.7 % (0.0-1.0); EOSINOPHILS # (AUTO) 0.2 (0.0-0.4); EOSINOPHILS % 2.3 % (0.0-6.0); HEMATOCRIT 42.6 % (34.2-44.1); HEMOGLOBIN 14.2 g/dL (12.0-16.0); LYMPHOCYTES # (AUTO) 2.5 (1.0-3.2); LYMPHOCYTES % 34.1 % (18.0-39.1); MEAN CORPUSCULAR HEMOGLOBIN 31.1 pg (28-32); MEAN CORPUSCULAR HGB CONC 33.3 g/dL (31-35); MEAN CORPUSCULAR VOLUME 93.2 fL (81-99); MONOCYTES # (AUTO) 0.7 (0.2-0.8); MONOCYTES % 9.1 % (4.4-11.3); NEUTROPHILS # (AUTO) 3.9 (2.1-6.9); NEUTROPHILS % 53.7 % (38.7-80.0); PLATELET COUNT 379 x10e3/uL (140-360); RED BLOOD COUNT 4.57 x10e6/uL (3.6-5.1); RED CELL DISTRIBUTION WIDTH 11.9 % (11.7-14.4); WHITE BLOOD COUNT 7.25 x10e3/uL (4.8-10.8)
[2025-01-05 05:20] LABS: ANION GAP 14.4 mmol/L (8-16); CALCIUM 9.1 mg/dL (8.4-10.2); CREATININE, SERUM 0.8 mg/dL (0.57-1.11); POTASSIUM 4.4 mmol/L (3.5-5.1)
[2025-01-05 07:30] VITALS: BP 124/75; PULSE 70; RESP 16; TEMP 97.8; O2SAT 100
[2025-01-05 07:31] VITALS: BP 124/75; PULSE 79; RESP 22; O2SAT 100
[2025-01-05 08:57] VITALS: BP 124/75; PULSE 79; RESP 22; TEMP 97.8; O2SAT 100
[2025-01-05] MEDS: POLYETHYLENE GLYCOL 3350 17 GM PACK PO PRN (09:46)
[2025-01-05 12:27] LABS: INSULIN 11.1 uIU/mL (2.6-24.9)
[2025-01-05 16:48] VITALS: BP 150/91; PULSE 93; RESP 14; TEMP 98.2; O2SAT 97
== END 2025-01-05 18:10 | disposition home or self-care (01) | DRG 639 ==
LOC: ER 16:06 → ERHOLD 19:16 → ICU 21:12
PROVIDERS: ADMIT Internal Medicine; ATTEND Internal Medicine
DX: E11.649 Type 2 diabetes mellitus with hypoglycemia without coma (principal); E78.2 Mixed hyperlipidemia; F33.41 Major depressive disorder, recurrent, in partial remission; E04.1 Nontoxic single thyroid nodule; Z79.85 Long-term (current) use of injectable non-insulin antidiabetic drugs; Z98.84 Bariatric surgery status; Z90.710 Acquired absence of both cervix and uterus
CPT/HCPCS: 36415; 70496; 70498; 80048; 80053; 82948; 83036; 83525; 83735; 84206; 84439; 84443; 84681; 85025; 99284; J7042; J7050; Q9967